=== PATIENT | male | born 1960 | race Caucasian/White ===

== ENCOUNTER 2020-04-20 12:52 | Outpatient (CLI) | payer OTHER, SELFPAY ==
--- NOTE | 2020-04-20 12:54 | ECG_ITS ---
Measurements Intervals [place] Rate: 110 P: 52 MA: 158 QRS: 77 QRSD: 98 T: 28 QT: 313 QTc: 425 Interpretive Statements SINUS TACHYCARDIA DELAYED PRECORDIAL R/S TRANSITION ABNORMAL ECG Electronically Signed On 04-20-2020 13:31:48 CDT by Chris Argueta D.O.
[2020-04-20 13:53] LABS: Alanine Aminotransferase 36 U/L (4-50); Albumin Level 4.7 g/dL (3.5-5.1); Alkaline Phosphatase 55 U/L (38-126); Amylase 97 U/L (30-110); Aspartate Amino Transferase 69 U/L (17-59); Bilirubin,Total 0.6 mg/dL (0.2-1.3); Lipase 991 U/L (23-300)
[2020-04-20 14:12] LABS: Blood Urea Nitrogen 16 mg/dL (9-20); Calcium 9.5 mg/dL (8.4-10.2); Carbon Dioxide 25 mmol/L (22-30); Chloride 96 mmol/L (98-107); Estimated Glomerular Filt Rate > 60; Glucose 256 mg/dL (75-110); Potassium 3.9 mmol/L (3.4-5.0); Sodium 135 mmol/L (137-145)
== END 2020-04-20 12:53 | disposition home or self-care (01) ==
PROVIDERS: Anesthesiology; PCP Internal Medicine; Visit Provider Surgery
DX: E11.9 Type 2 diabetes mellitus without complications (principal); K80.20 Calculus of gallbladder without cholecystitis without obstruction; R94.31 Abnormal electrocardiogram [ECG] [EKG]
CPT/HCPCS: 36415; 80048; 80076; 82150; 83690; 93005

== ENCOUNTER 2020-04-27 00:30 | Outpatient (CLI) | payer OTHER, SELFPAY ==
[2020-04-27 20:03] LABS: SARS-CoV-2 RNA PCR Negative
== END 2020-04-27 00:31 | disposition home or self-care (01) ==
LOC: ANHCOVIDDT 00:30
PROVIDERS: PCP Internal Medicine; Visit Provider Surgery
DX: Z01.812 Encounter for preprocedural laboratory examination (principal); Z11.59 Encounter for screening for other viral diseases
CPT/HCPCS: 87635; C9803; U0003

== ENCOUNTER 2020-04-27 08:36 | Outpatient (CLI) | payer OTHER, SELFPAY ==
[2020-04-27 08:56] LABS: Basophils Absolute Auto 0.1 K/mm3 (0.0-0.1); Basophils Percent Auto 0.9 % (0.2-1.2); Eosinophils Absolute Auto 0.3 K/mm3 (0-0.3); Eosinophils Percent Auto 2.8 % (0-4.4); Hematocrit 49.5 % (42.0-52.0); Hemoglobin 15.9 g/dL (14.0-18.0); Immature Granulocyte Absolute 0.08 K/mm3 (0.00-0.031); Immature Granulocyte Percent A 0.9 % (0-0.5); Lymphocytes Absolute Auto 2.74 K/mm3 (0.9-3.2); Lymphocytes Percent Auto 30.7 % (18.3-44.2); Mean Corpuscular HGB Conc 32.1 g/dl (32-36); Mean Corpuscular Hemoglobin 26.6 pg (26-34); Mean Corpuscular Volume 82.8 fl (80-100); Mean Platelet Volume 10.6 fl (7.4-10.4); Monocytes Absolute Auto 0.8 K/mm3 (0.1-0.6); Monocytes Percent Auto 8.6 % (2.6-8.5); Neutrophils Percent Auto 56.1 % (45.5-73.1); Platelet Count Result 313 k/mm3 (150-375); Red Blood Count 5.98 M/mm3 (4.6-6.20); Red Cell Distribution Width 14.4 % (11.5-14.5); White Blood Count 8.9 K/mm3 (4.5-10.0)
[2020-04-27 09:03] LABS: Alanine Aminotransferase 29 U/L (4-50); Albumin Level 4.8 g/dL (3.5-5.1); Alkaline Phosphatase 39 U/L (38-126); Amylase 87 U/L (30-110); Aspartate Amino Transferase 45 U/L (17-59); Bilirubin,Total 0.9 mg/dL (0.2-1.3); Blood Urea Nitrogen 21 mg/dL (9-20); Calcium 9.5 mg/dL (8.4-10.2); Carbon Dioxide 29 mmol/L (22-30); Chloride 99 mmol/L (98-107); Estimated Glomerular Filt Rate > 60; Glucose 119 mg/dL (75-110); Lipase 293 U/L (23-300); Potassium 4.3 mmol/L (3.4-5.0); Sodium 138 mmol/L (137-145)
== END 2020-04-27 08:37 | disposition home or self-care (01) ==
LOC: ANHSURGERY 08:37
PROVIDERS: PCP Internal Medicine; Visit Provider Surgery
DX: K80.20 Calculus of gallbladder without cholecystitis without obstruction (principal)
CPT/HCPCS: 36415; 80053; 82150; 83690; 85025

== ENCOUNTER 2020-04-29 02:08 | Day surgery (SDC) | payer OTHER, SELFPAY ==
[2020-04-17 10:42] VITALS: BMI 42.7
[2020-04-29] VITALS (8 sets, daily range): BP systolic 98–142; BP diastolic 53–99; PULSE 71–101; RESP 14–21; TEMP 36.2–36.3; O2SAT 92–100
--- NOTE | 2020-04-29 12:01 | WPDANESEPPF ---
Anes - Initial Pre Proc Eval Procedure: Operation Date: 04/29/20 13:30 Proposed Procedures p Laparoscopic Cholecystectomy, Possible Intraoperative Cholangiogram, Possible Open Cholecystectomy - Phani Moon MD Date/Time: 04/29/20 12:01 Surgeon: Phani Moon MD Pre Op Diagnosis: cholelithiasis Patient Data Age: 60 Gender: M Height: 5 ft 6 in Weight: 120.2 kg Allergies Allergy/AdvReac Type Severity Reaction Status Date / Time No Known Allergies Allergy Verified 04/17/20 10:43 Home Medications Medication Instructions Recorded Confirmed Type fenofibrate 160 mg tablet 160 mg PO DAILY 03/31/20 04/17/20 History glimepiride 2 mg tablet 2 mg PO QAM 03/31/20 04/17/20 History hydrochlorothiazide 50 mg tablet 50 mg PO DAILY 03/31/20 04/17/20 History metformin 500 mg tablet 500 mg PO DAILY 03/31/20 04/17/20 History olmesartan 20 mg tablet 20 mg PO DAILY 03/31/20 04/17/20 History rosuvastatin 10 mg tablet 10 mg PO DAILY 03/31/20 04/17/20 History sitagliptin 100 mg tablet 100 mg PO DAILY 03/31/20 04/17/20 History Patient hx anesthesia problems: none Family hx anesthesia problems: none [facility] Past Medical History Medical History (Updated 04/29/20 @ 12:01 by Omero Lowery MD) Diabetes High cholesterol HTN (hypertension) Social History Social History Smoking status: Never smoker Alcohol intake: current Substance use: never 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 Gender identity (if verbalized by the patient): Male Anes - Eval Final PreProcedure Day of Procedure 04/29/20 12:01 Patient weight: morbidly obese Heart: regular rate and rhythm Lungs: clear to auscultation Airway: Mallampati scale (anterior) class III Neurological: alert and oriented Last oral intake: >/= 8 hours ASA classification: III Emergent: no Anesthetic plan: proceed Anesthesia type and monitoring: general ETT (have glidescope available; anterior airway) and standard monitoring Informed Consent: The patient's anesthetic plan and its attendant risks and benefits were discussed with the patient/family/POA. Questions were solicited and answers provided to the satisfaction of the patient/family/POA.
[2020-04-29] MEDS: LACTATED RINGERS 1,000 ML 30 ML IV CONT ×2 (12:05→15:59)
[2020-04-29 12:10] LABS: Glucose Point of Care 88 (65-105)
[2020-04-29] MEDS: KETOROLAC 15 MG/ML VIAL (*BKC) IV PUSH (12:25)
--- NOTE | 2020-04-29 14:04 | WPDHPUPDATE1 ---
History and Physical Update Update Date/Time: 04/29/20 14:04 History and Physical has been reviewed, including an updated exam of the patient. There are NO changes in the patient's condition. Risks, benefits, and alternatives have been discussed and questions answered. Patient agrees to proceed with procedure.
[2020-04-29] MEDS: ceFAZolin 2 GM/D5W 50 ML 2 GM/50 ML BAG IVPB (14:14)
--- NOTE | 2020-04-29 14:42 | SUR.OPER ---
Blood Sugar checked at 1442-86
[2020-04-29 14:45] LABS: Glucose Point of Care 86 (65-105)
[2020-04-29] MEDS: BUPIVACAINE/EPINEPHRINE 0.5% 30 ML VIAL INFILTRATE (14:47)
--- NOTE | 2020-04-29 15:48 | P.OP_ITS ---
Procedure Note - Detailed Date of procedure: 04/29/20 Pre-op diagnosis: cholelithiasis Chronic Cholecystitis with Cholelithiasis Post-op diagnosis: same Procedure performed: Laparoscopic Cholecystectomy Description of procedure: Patient was seen preoperatively in the holding area and risks, benefits and alternatives confirmed. Patient was taken to the operating room and general anesthesia was induced. A time out was then preformed with the surgery team confirming patient and site of surgery. The abdomen was prepped and draped in the usual sterile fashion. Incision was made just below the umbilicus with an 11 blade knife. I placed 2 stay sutures of O- Vicryl on either side of the mid- line fascia beneath the umbilicus and was then able to slide in the Sheth cannula through the fascial defect into the peritoneum. First under low flow and then under high flow the abdomen was insufflated with carbon dioxide never exceeding a pressure of 14. Three 5 mm trocars were then introduced under direct vision. The following trocars were introduced under direct vision: a 5 mm in the epigastrium and two 5 mm trocars along the right costal margin laterally in the subcostal area. There were no significant adhesions to the gallbladder. The gallbladder however was fairly tensely distended and we could not grab it easily. Therefore using the long trocar needle an S 20 cc syringe we aspirated by puncturing the upper portion of the gallbladder with the needle and aspirated 20 cc. We were then able to grasp right on the spot without difficulty to allow for good retraction as we did the rest of the dissection. I then carefully used the L-shaped cautery and the [place] dissector to dissect out the triangle of [place]. I then was able to dissect out both the cystic duct and cystic artery and identify a window of safety. The gall bladder was grasped and the cystic duct and artery were dissected free and clipped with an 5 mm endo-clip ski binding fitter and repairer. The cystic duct and artery were clipped with use of 2 clips on the patient's side 1 on the gallbladder side utilizing a 5 mm endoclip-ski binding fitter and repairer. The cystic duct was then transected. The cystic artery was also transected at this point. The gall bladder was removed using electrocautery and then removed from the abdomen using an endobag. In order to get the large stone out of the abdomen within the gallbladder I did make the fascial defect slightly larger with Daily scissors. The trocars were removed visualizing hemostasis and the remaining gas evacuated. The large trocar site at the umbilicus was closed with a [id number] #1 Vicryl and also two simple O-Vicryl sutures. Further local anesthetic was placed into each incision for postop pain control. The skin incisions were closed with subcuticular suture of 4-0 Monocryl. Surgical glue then was applied to all the incisions. Patient tolerated the procedure well was taken to the recovery room in good condition. Anesthesia: GETA Surgeon: Phani Moon MD Cable Installation Technician: Fely VALLADARES, OR carpenter assistant Estimated blood loss (mL): 15 Drains: No Packing: No Pathology: yes (Gallbladder) Complications: No immediate complications Condition: stable Disposition: PACU Findings: Gallbladder did not appear to be acutely inflamed. There was a palpable 3 x 2 cm stone within the gallbladder upon removal.
[2020-04-29 16:32] LABS: Glucose Point of Care 113 (65-105)
--- NOTE | 2020-04-29 16:37 | SUR.PHASEI ---
[id number]. OSORIO AT [facility] TO SPEAK WITH PT.
== END 2020-04-29 17:28 | disposition home or self-care (01) ==
PROVIDERS: PCP Internal Medicine; Visit Provider Surgery
PROC: 0FT44ZZ Resection of Gallbladder, Percutaneous Endoscopic Approach (ICD-10-PCS; CPT 47562; principal; 2020-04-29 13:30)
DX: K80.10 Calculus of gallbladder with chronic cholecystitis without obstruction (principal); I10 Essential (primary) hypertension; E78.00 Pure hypercholesterolemia, unspecified; E11.9 Type 2 diabetes mellitus without complications; Z79.84 Long term (current) use of oral hypoglycemic drugs; E66.01 Morbid (severe) obesity due to excess calories; Z68.41 Body mass index [BMI] 40.0-44.9, adult
CPT/HCPCS: 47562; 88304; A9270; J0330; J0690; J1100; J1170; J1885; J2250; J2405; J2704; J2710; J3010; J7120

== ENCOUNTER 2021-07-25 11:48 | Observation (INO) | payer OTHER, SELFPAY ==
[2021-07-25] VITALS (7 sets, daily range): BP systolic 140–161; BP diastolic 79–91; PULSE 84–113; RESP 12–21; TEMP 36.4–36.9; O2SAT 96–100; BMI 42.0
--- NOTE | ~2021-07-25 | CT_ITS ---
EXAMINATION: CTA chest PE abdomen pel DATE: 07/25/2021 17:33 INDICATION: Lower chest and upper abdominal pain, shortness of breath TECHNIQUE: Computed tomography angiography (CTA) of the chest was performed with 100 mL Omnipaque-350 intravenous contrast timed to evaluate the pulmonary arteries. Subsequent postcontrast images of the abdomen and pelvis are obtained. Coronal maximum intensity projection 3D-reconstructions were create d by the technologist. The dose-length product (DLP) was 2255.10 mGy-cm. Automated exposure control a nd iterative reconstruction technique were employed. COMPARISON: None. FINDINGS: CTA CHEST: The pulmonary arteries are well-opacified. No pulmonary embolus is identified. Sensitivity in the lower lobes is limited by motion artifact. There is mild atelectasis of the lower lobes. No p leural effusion or pneumothorax is identified. No pathologically enlarged thoracic lymph nodes are id entified. The heart size is normal. ABDOMEN/PELVIS CT: There is a small sliding hiatal hernia. The liver is diffusely low in attenuation when compared with the spleen, consistent with hepatic steatosis. The gallbladder is surgically absen t. The spleen, pancreas, and adrenal glands are normal. Cysts of the kidneys measure up to 1.7 cm on the left. There is a 3 mm nonobstructing stone of the left kidney lower pole. There is calcified athe rosclerosis of the aorta and many of the other arteries. No pathologically enlarged abdominal or pelv ic lymph nodes are identified. There is no free intraperitoneal gas or evidence of bowel obstruction. The appendix is normal. There is mild lumbar spondylosis. IMPRESSION: 1. No pulmonary embolus. 2. No acute abnormality of the abdomen and pelvis. Reviewed, dictated and finalized at location A.
--- NOTE | ~2021-07-25 | NM_ITS ---
EXAMINATION: NM vaibhav stress w perfusion DATE: 07/26/2021 11:16 INDICATION: Chest discomfort TECHNIQUE: Rest images were obtained following intravenous administration of 10.3 mCi Tc99m tetrofosm in (Myoview). The patient was infused intravenously with Lexiscan (Regadenoson). Then, 31.77 mCi Tc99 m tetrofosmin (Myoview) was administered intravenously, and stress images were obtained. Data was rec onstructed into short axis and horizontal and vertical long axis SPECT images. Gated SPECT images wer e also obtained. COMPARISON: None. FINDINGS: There is no definite reversible or fixed perfusion abnormality to suggest ischemia or infar ction. There is normal left ventricular chamber size, wall motion and ejection fraction. Left ventr icular ejection fraction measures 67%. IMPRESSION: 1. Normal myocardial perfusion at rest and during stress. 2. Left ventricular ejection fraction measuring 67%. Reviewed, dictated and finalized at location B.
--- NOTE | ~2021-07-25 | XR_ITS ---
XR chest 2V 07/25/2021 12:09 Indication: Chest pain Procedure: PA and lateral views of the chest Comparison: No prior studies for comparison. Findings: Bibasilar atelectasis. No focal air space disease, pulmonary edema, pleural effusion or lois pected pneumothorax. Impression: 1: Bibasilar atelectasis. Reviewed, dictated and finalized at location A. Impression: 1: Bibasilar atelectasis.
--- NOTE | 2021-07-25 11:54 | ECG_ITS ---
Measurements Intervals [place] Rate: 110 P: 41 [place]: 154 QRS: 60 QRSD: 98 T: 14 QT: 326 QTc: 441 Interpretive Statements SINUS TACHYCARDIA POSSIBLE LEFT ATRIAL ENLARGEMENT INCOMPLETE RIGHT BUNDLE BRANCH BLOCK BORDERLINE ST-T WAVE ABNORMALITY- INFERIOR LEADS BASELINE ARTIFACT- I, III, AVR, AVL, V2-V3, V5 ABNORMAL ECG Electronically Signed On 07-25-2021 16:34:57 CDT by Chris Argueta D.O.
[2021-07-25 12:15] LABS: Basophils Absolute Auto 0.1 K/mm3 (0.0-0.1); Basophils Percent Auto 0.7 % (0.2-1.2); Eosinophils Absolute Auto 0.2 K/mm3 (0-0.3); Eosinophils Percent Auto 1.3 % (0-4.4); Hematocrit 48.9 % (42.0-52.0); Immature Granulocyte Absolute 0.06 K/mm3 (0.00-0.031); Immature Granulocyte Percent A 0.5 % (0-0.5); Lymphocytes Absolute Auto 3.41 K/mm3 (0.9-3.2); Lymphocytes Percent Auto 30.4 % (18.3-44.2); Mean Corpuscular HGB Conc 32.7 g/dl (32-36); Mean Corpuscular Volume 82.6 fl (80-100); Mean Platelet Volume 9.9 fl (7.4-10.4); Monocytes Absolute Auto 0.8 K/mm3 (0.1-0.6); Monocytes Percent Auto 6.7 % (2.6-8.5); Neutrophils Absolute Auto 6.8 K/mm3 (1.3-6.7); Neutrophils Percent Auto 60.4 % (45.5-73.1); Platelet Count Result 330 k/mm3 (150-375); Red Blood Count 5.92 M/mm3 (4.6-6.20); Red Cell Distribution Width 14.3 % (11.5-14.5); White Blood Count 11.2 K/mm3 (4.5-10.0)
[2021-07-25 12:25] LABS: INR 0.9; Prothrombin Time 12.3 Seconds (11.1-14.7)
[2021-07-25 12:26] LABS: Anion Gap 17 mmol/L (8-16); Blood Urea Nitrogen 21 mg/dL (9-20); Calcium 9.6 mg/dL (8.4-10.2); Carbon Dioxide 22 mmol/L (22-30); Chloride 100 mmol/L (98-107); Estimated Glomerular Filt Rate > 60; Glucose 120 mg/dL (65-110); Partial Thromboplastin Time 23.6 SECONDS (22.3-36.8); Potassium 3.9 mmol/L (3.4-5.0); Sodium 139 mmol/L (137-145)
[2021-07-25 12:36] LABS: Troponin I < 0.012 ng/mL (0.000-0.034)
[2021-07-25 15:28] LABS: Troponin I < 0.012 ng/mL (0.000-0.034)
[2021-07-25] MEDS: ASPIRIN 81 MG CHEWABLE TABLET 324 MG PO (16:41)
--- NOTE | 2021-07-25 16:45 | ED.GENADULT ---
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 He states he had sudden onset of hot flashes and chills accompanied by nausea, epigastric discomfort, and lightheadedness. She denies chest pain per se and also denies cough and shortness of breath. No history of similar symptoms. Past medical history includes hypertension, hyperlipidemia, diabetes. His home blood sugars run between 90 and 105. He checked his blood sugar with a reading of 101. He let his son know that he was not feeling well, and also contacted his . They brought him here for further evaluation. Denies significant stress levels. He does not consume alcohol or use illicit drugs. Denies smoking. No history of [place]. Paternal history of CAD. He states he feels somewhat improved from the time of symptom onset. He has never had stress test or ECHO per his reports. Related Data Home Medications Medication Instructions Recorded Confirmed fenofibrate 160 mg tablet 160 mg PO DAILY 03/31/20 05/13/20 glimepiride 2 mg tablet 2 mg PO QAM 03/31/20 05/13/20 hydrochlorothiazide 50 mg tablet 50 mg PO DAILY 03/31/20 05/13/20 metformin 500 mg tablet 500 mg PO DAILY 03/31/20 05/13/20 olmesartan 20 mg tablet 20 mg PO DAILY 03/31/20 05/13/20 rosuvastatin 10 mg tablet 10 mg PO DAILY 03/31/20 05/13/20 sitagliptin 100 mg tablet 100 mg PO DAILY 03/31/20 05/13/20 insulin degludec 100 unit/mL (3 20 unit SUB-Q DAILY 05/13/20 05/13/20 mL) subcutaneous pen Allergies Allergy/AdvReac Type Severity Reaction Status Date / Time No Known Allergies Allergy Verified 07/25/21 16:43 Review of Systems Review of Systems: CONSTITUTIONAL: Reports hot flashes and chills EYES: Denies visual changes, redness, or discharge. ENT: Denies rhinorrhea, congestion, sore throat, or otalgia. CARDIOVASCULAR: Denies chest pain, palpitations, or edema. RESPIRATORY: Denies cough or dyspnea. GASTROINTESTINAL: Reports abdominal pain and nausea without vomiting. Denies diarrhea. GENITOURINARY: Reports urinary frequency. Denies dysuria or hematuria. SKIN: Denies rash or itching. MUSCULOSKELETAL: Reports generalized myalgias. Denies back pain NEUROLOGIC: Reports mild headache and lightheadedness. Denies numbness, dizziness PSYCHIATRIC: Denies anxiety or depression. [facility] Past Medical History Medical History (Updated 07/25/21 @ 19:42 by MOHIT VanegasP, ) Diabetes High cholesterol HTN (hypertension) Surgical History Surgical History Hx laparoscopic cholecystectomy Family History Family History Father No problems noted. 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 HEAD: Normocephalic, atraumatic. EYES: PERRLA and EOMI. ENT: Nares clear, no rhinorrhea or epistaxis. Mucous membranes moist. Oropharynx without tonsillar hypertrophy exudate or other lesions. Bilateral TMs pearly monroe nonbulging NECK: Supple. No adenopathy or masses. No carotid bruits or JVD CHEST: Clear to auscultation. No respiratory distress. No wheezes rales or rhonchi HEART: Rate 110 Normal rhythm. No murmur heard. Normal peripheral pulses. ABDOMEN: Soft, epigastric tenderness without rebound or guarding. Abdomen is nondistended, norm
[2021-07-25] MEDS: SODIUM CHLORIDE 0.9% IV 1,000 ML 999 ML IV CONT (17:05)
[2021-07-25] MEDS: FAMOTIDINE 20 MG/2 ML VIAL IV PUSH ×2 (17:05→21:59)
[2021-07-25] MEDS: ONDANSETRON INJ 4 MG/2 ML VIAL IV PUSH (17:05)
[2021-07-25 17:14] LABS: Alanine Aminotransferase 32 U/L (4-50); Albumin Level 5.3 g/dL (3.5-5.1); Alkaline Phosphatase 38 U/L (38-126); Aspartate Amino Transferase 36 U/L (17-59); Bilirubin,Total 0.9 mg/dL (0.2-1.3); Creatine Kinase 76 U/L (55-170); Lactic Acid Reflex 1.7 mmol/L (0.7-2.1); Lipase 96 U/L (23-300)
[2021-07-25 17:15] LABS: Add Urine Microscopic? YES; Appearance Urine Clear (Clear); Bilirubin Urine Negative (Negative); Blood Urine Negative (Negative); Color Urine Yellow (Yellow); Glucose Urine UA Negative (Negative); Ketones Urine Negative (Negative); Leukocyte Esterase Ur Negative LEU/UL (Negative); Mucus Urine Rare /lpf; Nitrate Urine Negative (Negative); Protein Urine 1+ mg/dL (Negative); Specific Grav Ur 1.016 (1.001-1.035); Urobilinogen Urine Negative mg/dL (<2.0); WBC Urine 0-3 /hpf
[2021-07-25 18:12] LABS: Free T4 Free Thyroxine 1.18 ng/mL (0.78-2.19)
[2021-07-25] MEDS: BELLADONNA ALK/PHENOB ELIX 10 ML, MAG HYDROX/ALUMINUM HYD/SIMETH 30 ML, LIDOCAINE HCL 2... PO (18:53)
--- NOTE | 2021-07-25 19:18 | PC.NURSE ---
pt reports pain has subsided s/p gi cocktail
--- NOTE | 2021-07-25 21:19 | ADMGEN ---
This patient, Brodie Birmingham, was admitted to Medical Room 251-01. Patient/family oriented to hospital policies and general routines including ID bracelet, bed and alarms, visiting hours, pain management, procedures, bathroom and other care routines, personal items, smoking policy, room service/diet, and visiting hours. Information on how to activate the Rapid Response Team has been discussed. Patient/Family are encouraged to report perceived risks to care and to ask questions if they do not understand what they are told or what they should do.
[2021-07-25] MEDS: SODIUM CHLORIDE 0.9% IV 1,000 ML 125 ML IV CONT (21:54)
[2021-07-25 22:33] LABS: Troponin I < 0.012 ng/mL (0.000-0.034)
[2021-07-25 22:47] LABS: Glucose Point of Care 101 mg/dl (65-105)
[2021-07-26] VITALS (8 sets, daily range): BP systolic 117–153; BP diastolic 67–88; PULSE 59–95; RESP 16; TEMP 36.1–36.6; O2SAT 97–98
--- NOTE | 2021-07-26 00:52 | PM.IMHP ---
H&P: HPI History of Present Illness Date/Time: 07/26/21 00:52 Chief Complaint: Epigastric discomfort Narrative: This is a 61-year-old male with past medical history significant for hypertension, dyslipidemia, type 2 diabetes mellitus, obesity. 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 Patient has been in his usual state of health up until this episode he denies any chest pain with activity or at rest no shortness of breath, no PND ,no orthopnea ,no cough, no sputum production, no leg swelling, no nausea ,no vomiting ,no diarrhea, no fevers ,no rigors ,no chills, he has been working 14-16 hours a day he works 2 jobs, he denies any claudication ,any lightheadedness, dizziness, near-syncope or syncope. Preliminary workup has been pretty much unrevealing patient had a GI cocktail in the emergency room which alleviated his discomfort. Patient has been placed in observation for further management treatment and evaluation. Review of Systems Review of Systems: Epigastric discomfort retrosternal chest pain Constitutional: Constitutional: Denies chills, Denies fatigue, Denies fever(s), Denies malaise and Denies weakness Eyes: Eyes: Denies change in vision ENT: Denies dysphagia, Denies vertigo, Denies dizziness, Denies nasal congestion, Denies nasal discharge, Denies nasal obstruction and Denies odynophagia Cardiovascular: Cardiovascular: Denies irregular heart rhythm, Denies leg edema, Denies lightheadedness, Denies radiating jaw, neck or arm pain, Denies palpitations, Denies dyspnea, Denies dyspnea on exertion and Denies orthopnea Respiratory: Respiratory: Denies change in phlegm color, Denies cough, Denies excessive phlegm production, Denies dyspnea and Denies wheezing Gastrointestinal: Gastrointestinal: Reports abdominal pain (Epigastric), Reports heartburn, Denies nausea and Denies vomiting Genitourinary: Genitourinary: Reports no additional male genitourinary complaints Musculoskeletal: Musculoskeletal: Reports no additional musculoskeletal complaints Integumentary/Breasts: Skin/Breast: Reports system reviewed and no additional complaints, except as docu Neurologic: Reports system reviewed and no additional complaints, except as documented Psychiatric: Psychiatric: Reports no additional psychiatric complaints Endocrine: Endocrine: Reports no additional endocrine complaints Hematologic/Lymphatic: Hematologic/Lymphatic: Reports no additional hematologic/lymphatic complaints Allergic/Immunologic: Allergic/Immunologic: Reports no additional allergic/immunologic complaints PMFSH Past Medical History Medical History (Updated 07/26/21 @ 04:01 by John Cotto MD) Diabetes High cholesterol HTN (hypertension) Surgical History Surgical History Hx laparoscopic cholecystectomy Family History Family History (Updated 07/25/21 @ 22:08 by Helen Collins RN) Father Heart disease Dementia Mother Panchondritis Social History Social History Smoking status: Former smoker Alcohol intake: current Drinks per week: 0 Substance use: never Substance use type: does not use Other substance usage details: social drinker, minimally 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
--- NOTE | 2021-07-26 03:51 | EST_ITS ---
Patient Info Name: Brodie Birmingham Age: 61 years : 1960 Gender: Male Ht: 66 in Wt: 260 lbs BSA: 2.40 m2 HR: 88 bpm BP: 141 / 97 mmHg Exam Date: 07/26/2021 10:18 AM Exam Location: [facility] Stress Patient Status: Inpatient Admit Date: 07/25/2021 Staff Ordering Physician: John Cotto MD Attending Provider: Sarkis Rushing MD Exercise Technologist: Alana Og CT Exercise Physician: Yo Garces MD Exam Type: CA stress vaibhav w NM Study Info Indications R07.89 - Other chest pain A regadenoson stress test was performed. Summary 1. Please correlate with nuclear medicine images, reported separately. 2. No abnormal ST-T wave changes with lexiscan. Protocol: Lexiscan Stress ECG Details Stage: REST Duration (min): 3 min : 45 sec HR (bpm): 84 SBP (mmHg): 141 DBP (mmHg): 97 Stage: REST Duration (min): 8 min : 51 sec HR (bpm): 93 SBP (mmHg): 129 DBP (mmHg): 82 Stage: STAGE 1 Duration (min): 0 min : 59 sec HR (bpm): 105 SBP (mmHg): 148 DBP (mmHg): 70 Stage: RECOVERY Duration (min): 1 min : 0 sec HR (bpm): 109 SBP (mmHg): 148 DBP (mmHg): 70 Stage: RECOVERY Duration (min): 2 min : 0 sec HR (bpm): 104 SBP (mmHg): 148 DBP (mmHg): 70 Stage: RECOVERY Duration (min): 3 min : 0 sec HR (bpm): 103 SBP (mmHg): 140 DBP (mmHg): 71 Stage: RECOVERY Duration (min): 3 min : 10 sec HR (bpm): 101 SBP (mmHg): 140 DBP (mmHg): 71 Rest HR: 93 bpm Peak HR: 111 bpm Rest Sys BP: 129 mmHg Peak Sys BP: 148 mmHg Max Pred HR: 158 bpm % Max Pred HR: 70 % Target HR: 134 bpm Max RPP: 16,428 bpm*mmHg Target HR Summary: Hemodynamic response to exercise was normal BP Response: Normal blood pressure response Termination Reason: Completed protocol Cardiac Symptoms: None Total Time: 1 min : 0 sec Rest Contreras BP: 82 mmHg Peak Contreras BP: 70 mmHg Total Dose: 0.4 mg Resting ECG Normal sinus rhythm. Stress ECG No abnormal ST/T wave changes with exercise. Arrhythmias None. Report Signatures
[2021-07-26] MEDS: SODIUM CHLORIDE 0.9% IV 1,000 ML 125 ML IV CONT (06:00)
[2021-07-26 06:43] LABS: Basophils Absolute Auto 0.1 K/mm3 (0.0-0.1); Basophils Percent Auto 0.8 % (0.2-1.2); Eosinophils Absolute Auto 0.2 K/mm3 (0-0.3); Eosinophils Percent Auto 1.4 % (0-4.4); Hematocrit 44.9 % (42.0-52.0); Hemoglobin 14.3 g/dL (14.0-18.0); Immature Granulocyte Absolute 0.04 K/mm3 (0.00-0.031); Immature Granulocyte Percent A 0.4 % (0-0.5); Lymphocytes Absolute Auto 3.02 K/mm3 (0.9-3.2); Lymphocytes Percent Auto 28.6 % (18.3-44.2); Mean Corpuscular HGB Conc 31.8 g/dl (32-36); Mean Corpuscular Hemoglobin 27.1 pg (26-34); Mean Platelet Volume 10.2 fl (7.4-10.4); Monocytes Percent Auto 9.5 % (2.6-8.5); Neutrophils Absolute Auto 6.3 K/mm3 (1.3-6.7); Neutrophils Percent Auto 59.3 % (45.5-73.1); Platelet Count Result 261 k/mm3 (150-375); Red Blood Count 5.28 M/mm3 (4.6-6.20); Red Cell Distribution Width 14.8 % (11.5-14.5); White Blood Count 10.6 K/mm3 (4.5-10.0)
[2021-07-26 06:51] LABS: Anion Gap 10 mmol/L (8-16); Blood Urea Nitrogen 16 mg/dL (9-20); Calcium 8.3 mg/dL (8.4-10.2); Carbon Dioxide 26 mmol/L (22-30); Chloride 103 mmol/L (98-107); Estimated CRCL calculation 90 ml/min; Estimated Glomerular Filt Rate > 60; Glucose 109 mg/dL (65-110); Potassium 3.8 mmol/L (3.4-5.0); Sodium 139 mmol/L (137-145)
[2021-07-26] MEDS: FAMOTIDINE 20 MG/2 ML VIAL IV PUSH ×2 (07:39→20:45)
[2021-07-26] MEDS: OLMESARTAN MEDOXOMIL 20 MG TABLET PO (08:20)
[2021-07-26 12:27] LABS: Glucose Point of Care 141 mg/dl (65-105)
[2021-07-26] MEDS: FENOFIBRATE 160 MG TABLET PO (13:30)
[2021-07-26] MEDS: hydroCHLOROthiazide 25 MG TABLET PO (13:30)
[2021-07-26] MEDS: ROSUVASTATIN 10 MG TABLET PO (13:30)
[2021-07-26 17:10] LABS: Glucose Point of Care 137 mg/dl (65-105)
--- NOTE | 2021-07-26 17:49 | WPDGICN ---
Assessment and Plan Assessment and plan (1) Non-cardiac chest pain: Code(s): R07.89 - Other chest pain Status: Acute Assessment and Plan: stress test was normal, he is feeling better egd tomorrow to assess if any gi cause to explain his symptoms (2) Acute epigastric pain: Code(s): R10.13 - Epigastric pain Status: Acute (3) Type 2 diabetes mellitus: Code(s): E11.9 - Type 2 diabetes mellitus without complications Status: Acute Assessment and Plan: on meds (4) Dyslipidemia associated with type 2 diabetes mellitus: Code(s): E11.69 - Type 2 diabetes mellitus with other specified complication; E78.5 - Hyperlipidemia, unspecified Status: Acute (5) HTN (hypertension): Code(s): I10 - Essential (primary) hypertension Status: Acute Assessment and Plan: on meds (6) Nausea: Code(s): R11.0 - Nausea Status: Acute Assessment and Plan: on arrival, better now GI Consult Note Consult date/time: 07/26/21 17:49 Reason for consult: non-cardiac chest pain, nausea HPI: Brodie Birmingham is a 61 year old male with past medical history of hypertension, dyslipidemia, type 2 diabetes mellitus, obesity who came to the hospital with acute onset of severe pain in epigastric and retrosternal chest pain 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 He thought that could have heart attack and came to ER. Stress test was unrevealing and GI cocktail in the emergency room alleviated his discomfort. Also had CT chest/abd/pelvis (reviewed) and unremarkable. About 20 years ago had some sort of scope after having fish bone stuck in throat but otherwise no previous GI evaluation. Last colonoscopy about 15 years. He is feeling better now. Review of Systems Constitutional: Constitutional: Denies chills Eyes: Eyes: Denies blurry vision ENT: Reports Normal hearing present Cardiovascular: Cardiovascular: Reports chest pain Respiratory: Respiratory: Denies dyspnea Gastrointestinal: Gastrointestinal: Reports nausea Genitourinary: Genitourinary: Denies dysuria Musculoskeletal: Musculoskeletal: Denies arthralgias Integumentary/Breasts: Skin/Breast: Denies dry skin Neurologic: Denies headache(s) Psychiatric: Psychiatric: Reports no additional psychiatric complaints PMFSH Past Medical History Medical History (Updated 07/26/21 @ 17:53 by David Mo MD) Diabetes High cholesterol HTN (hypertension) Nausea Non-cardiac chest pain Surgical History Surgical History Hx laparoscopic cholecystectomy Family History Family History (Updated 07/25/21 @ 22:08 by Helen Collins, JACQUELYN) Father Heart disease Dementia Mother Panchondritis Social History Social History Smoking status: Former smoker Alcohol intake: current Drinks per week: 0 Substance use: never Substance use type: does not use Other substance usage details: social drinker, minimally 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 Gender identity (if verbalized by the patient): Male Spiritual care concerns: No Meds Home Medications and Allergies Home Medications Medication Instructions Recorded Confirmed Type fenofibrate 160 mg tablet 160 mg PO DAILY 03/31/20 07/25/21 History glimepiride 2 mg tablet 2 mg PO BID 03/31/20 07/25/21 History hydrochlorothiazide 50 mg tablet 25 mg PO DAILY 03/31/20 07/25/21 History metformin 500 mg tablet 1,000 mg PO BID 03/31/20 07/25/21 History olmesartan 20 mg tablet 20 mg PO DAILY 03/31/20 07/25/21 History rosuvastatin 10 mg tablet 10 mg PO DAILY 03/31/20 07/25/21 History insulin degludec 100 unit/mL (3 20 unit SUB-Q DAILY 05/13/20 07/25/21 History mL) subcutaneous pen Allergies Allergy/AdvReac Type Severity Reaction Status Date / Time No Kno
[2021-07-26 21:22] LABS: Glucose Point of Care 110 mg/dl (65-105)
[2021-07-27] VITALS (10 sets, daily range): BP systolic 104–143; BP diastolic 61–85; PULSE 66–90; RESP 14–25; TEMP 35.9–36.5; O2SAT 93–100
[2021-07-27 06:54] LABS: Glucose Point of Care 121 mg/dl (65-105)
--- NOTE | 2021-07-27 08:21 | PC.NURSE ---
Spoke with anesthesiolgoist in regards to patients morning medications. Per anesthesia, hold oral morning medications.
[2021-07-27] MEDS: FAMOTIDINE 20 MG/2 ML VIAL IV PUSH (08:23)
--- NOTE | 2021-07-27 12:35 | PC.NURSE ---
On 07/27/21, the student, Yaneth Patel, provided care and completed [facility] documentation on this patient. I have reviewed the student's documentation and agree with the findings.
--- NOTE | 2021-07-27 13:37 | PC.NURSE ---
Pt to GI lab.
--- NOTE | 2021-07-27 13:48 | WPDANESEPPF ---
Anes - Initial Pre Proc Eval Procedure: Operation Date: 07/27/21 15:00 Proposed Procedures p Esophagogastroduodenoscopy - David Mo MD Date/Time: 07/27/21 13:48 Surgeon: Sarkis Rushing MD Pre Op Diagnosis: Chest Pain Patient Data Age: 61 Gender: M Height: 1.68 m Weight: 118.18 kg Last Vital Signs Temp 97.3 F L 07/27/21 11:52 Pulse 83 07/27/21 12:00 Resp 16 07/27/21 11:52 BP 142/85 H 07/27/21 11:52 Pulse Ox 100 07/27/21 11:52 Allergies Allergy/AdvReac Type Severity Reaction Status Date / Time No Known Allergies Allergy Verified 07/25/21 16:43 Home Medications Medication Instructions Recorded Confirmed Type fenofibrate 160 mg tablet 160 mg PO DAILY 03/31/20 07/25/21 History glimepiride 2 mg tablet 2 mg PO BID 03/31/20 07/25/21 History hydrochlorothiazide 50 mg tablet 25 mg PO DAILY 03/31/20 07/25/21 History metformin 500 mg tablet 1,000 mg PO BID 03/31/20 07/25/21 History olmesartan 20 mg tablet 20 mg PO DAILY 03/31/20 07/25/21 History rosuvastatin 10 mg tablet 10 mg PO DAILY 03/31/20 07/25/21 History insulin degludec 100 unit/mL (3 20 unit SUB-Q DAILY 05/13/20 07/25/21 History mL) subcutaneous pen Laboratory Tests 07/26/21 07/26/21 07/27/21 15:56 20:44 06:39 POC Capillary Glucose 137 mg/dl H mg/dl 110 mg/dl H mg/dl 121 mg/dl H mg/dl (65-105) (65-105) (65-105) Patient hx anesthesia problems: none Family hx anesthesia problems: none Results Review: All pre-operative results and documents have been reviewed as part of the pre-operative evaluation. [facility] Past Medical History Medical History (Updated 07/26/21 @ 17:53 by David Mo MD) Diabetes High cholesterol HTN (hypertension) Nausea Non-cardiac chest pain Surgical History Surgical History Hx laparoscopic cholecystectomy Family History Family History (Updated 07/25/21 @ 22:08 by Helen Collins RN) Father Heart disease Dementia Mother Panchondritis Social History Social History Smoking status: Former smoker Alcohol intake: current Drinks per week: 0 Substance use: never Substance use type: does not use Other substance usage details: social drinker, minimally 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 Informed Consent: The patient's anesthetic plan and its attendant risks and benefits were discussed with the patient/family/POA. Questions were solicited and answers provided to the satisfaction of the patient/family/POA.
[2021-07-27 14:02] LABS: Glucose Point of Care 109 mg/dl (65-105)
[2021-07-27] MEDS: LACTATED RINGERS 1,000 ML 150 ML IV CONT (14:07)
[2021-07-27 15:07] LABS: Glucose Point of Care 109 mg/dl (65-105)
--- NOTE | 2021-07-27 15:14 | PC.NURSE ---
Pt returned from GI lab.
--- NOTE | 2021-07-27 15:14 | PM.DS ---
DS: Admitting Diagnosis Discharge Date 07/27/2021 Admitting Diagnosis Epigastric discomfort DS: Discharge Diagnosis Discharge Diagnosis (1) Acute epigastric pain: Code(s): R10.13 - Epigastric pain Status: Acute Assessment and Plan: Improved with GI cocktail GI consulted pt had Lexiscan stress test pt had EGD see below. (2) HTN (hypertension): Code(s): I10 - Essential (primary) hypertension Status: Acute Assessment and Plan: Continue to monitor Normal high Resume home meds (3) Dyslipidemia associated with type 2 diabetes mellitus: Code(s): E11.69 - Type 2 diabetes mellitus with other specified complication; E78.5 - Hyperlipidemia, unspecified Status: Acute Assessment and Plan: Continue statin Follow-up in outpatient setting On fenofibrate (4) Type 2 diabetes mellitus: Code(s): E11.9 - Type 2 diabetes mellitus without complications Status: Acute Assessment and Plan: Continue insulin Holding glimepiride and metformin Accu-Cheks AC and HS Insulin sliding scale as needed DS: Summary Hospital Course Hospital Course: 61-year-old male with past medical history significant for hypertension, dyslipidemia, type 2 diabetes mellitus, obesity. Patient presented to the emergency room due to epigastric discomfort and retrosternal chest pain dear started roughly in the morning patient has a form and has been working in his fine lifting heavy objects when he 1st felt sharp pain across his chest that later on became 90 and as time progressed he was worsened he initially attributed to dehydration and had a drink drove himself to the emergency room. Pt had negative lexiscan, pt had gi consult. 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 Was discharged on protonix orally. Time Spent with Patient Time attestation: Total time spent providing and/or coordinating discharge services: 40 minutes on day of dischrage Exam Narrative: Patient is laying in bed Resp: Effort & Inspection: normal respiratory effort, able to speak in complete sentences and no cough Auscultation: clear to auscultation bilaterally, no crackles, no rales, no rhonchi and no wheezes Cardio: Jugular venous distension: no JVD Rate: regular rate Rhythm: regular rhythm Heart sounds: S1 normal heart sound present and S2 normal heart sound present GI: Inspection: Pannus present and obesity Skin: Rashes: no rashes Wounds: no wounds Neuro: General: patient oriented x3 and CN's II-XI intact bilaterally Cranial nerves: Yes CN's II-XII intact bilaterally and Yes Equal, round and reactive pupils present Cognition (Neuro): normal cognition Speech: normal speech Gait exam (Neuro): Normal gait present Motor exam (neuro): 5/5 motor strength present throughout Extrem: General: normal to inspection, full ROM, no joint enlargement and no pedal edema DS: Data Data Completed and Pending Pending studies at discharge: Pending at discharge 07/27/21 14:39 Surgical [PTH] Routine Labs on day of discharge: Labs from last 24 hours 07/27/21 07/27/21 07/27/21 15:03 13:59 06:39 POC Capillary Glucose 109 H 109 H 121 H 07/26/21 07/26/21 20:44 15:56 POC Capillary Glucose 110 H 137 H Discharge Plan Discharge Attending physician on discharge: Danielle Gaviria Consulting providers: David Mo ; John Cotto V. ; Dante Ayala ; Willard Sweet ; Yo Garces ; Cullen Thao ; Chris Argueta Discharging Clinician: Danielle Gaviria Anticipated Discharge Date/Time: 07/27/21 15:13 Patient Disposition: Home, Self-Care Activity: as tolerated Diet: as tolerated Patient Instructions: Antibiotic Form Stand Alone Forms: General Discharge Information, Work/School Release IP Follow-up/Referrals: David Mo MD [Physician] - (in 1-2 months for colonoscopy and 1 year for rpt EGD ) Discharge
== END 2021-07-27 16:20 | disposition home or self-care (01) ==
LOC: ANHED 19:42 → ANH2MED 07-27 08:50
PROVIDERS: Emergency Medicine; Internal Medicine; Internal Medicine Gastroenterology; Admitting Provider Family Medicine; Emergency Provider Nurse Practitioner; PCP Internal Medicine; Visit Provider Family Medicine
PROC: 0DJ08ZZ Inspection of Upper Intestinal Tract, Via Natural or Artificial Opening Endoscopic (ICD-10-PCS; CPT 43235; principal; 2021-07-27 15:00)
DX: R07.89 Other chest pain (principal); R10.13 Epigastric pain; E78.5 Hyperlipidemia, unspecified; E11.9 Type 2 diabetes mellitus without complications; E66.9 Obesity, unspecified; I10 Essential (primary) hypertension; Z68.41 Body mass index [BMI] 40.0-44.9, adult; Z79.84 Long term (current) use of oral hypoglycemic drugs; Z79.4 Long term (current) use of insulin
CPT/HCPCS: 36415; 71046; 71275; 74177; 78452; 80048; 80076; 81001; 82550; 82948; 83605; 83690; 84439; 84443; 84484; 85025; 85610; 85730; 88305; 88313; 93005; 93017; 96361; 96374; 96375; 96376; 99285; A9270; A9502; G0378; J2405; J2704; J7030; J7120; Q9967

== ENCOUNTER 2022-02-25 01:29 | Day surgery (SDC) | payer OTHER, SELFPAY ==
[2022-02-09 14:45] VITALS: BMI 42.0
[2022-02-25 09:13] VITALS: BP 118/98; PULSE 120; RESP 20; TEMP 36.2; O2SAT 96
[2022-02-25 09:17] LABS: Glucose Point of Care 205 mg/dl (65-105)
[2022-02-25] MEDS: LACTATED RINGERS 1,000 ML 150 ML IV CONT (09:31)
--- NOTE | 2022-02-25 09:41 | PM.HPGS ---
History of Present Illness History of Present Illness Consent: Risks, benefits, and alternatives have been discussed and questions answered. Patient agrees to proceed with procedure. Chief complaint: neoplasm screening Narrative: Brodie Birmingham is a 61 year old male here for screening colonoscopy, last one 15 years ago Review of Systems Constitutional: Constitutional: Denies headache(s) and Denies weakness Eyes: Eyes: Denies blurry vision ENT: Reports Normal hearing present, Denies headache(s) and Denies neck pain Cardiovascular: Cardiovascular: Denies chest pain and Denies dyspnea Respiratory: Respiratory: Denies dyspnea Gastrointestinal: Gastrointestinal: Reports no additional gastrointestinal complaints Genitourinary: Genitourinary: Denies dysuria Musculoskeletal: Musculoskeletal: Denies neck pain Integumentary/Breasts: Skin/Breast: Denies dry skin Neurologic: Reports Normal hearing present, Denies headache(s) and Denies weakness Psychiatric: Psychiatric: Denies anxiety Endocrine: Endocrine: Denies change in body appearance Hematologic/Lymphatic: Hematologic/Lymphatic: Denies easy bleeding Allergic/Immunologic: Allergic/Immunologic: Denies urticaria PMFSH Past Medical History Medical History Diabetes High cholesterol HTN (hypertension) Nausea Non-cardiac chest pain Surgical History Surgical History Hx laparoscopic cholecystectomy Family History Family History Father Dementia Diabetes mellitus Hypertension Mother Panchondritis Social History Social History Years smoked: 10 Smoking status: Former smoker Tobacco type: cigarettes Alcohol intake: current Drinks per week: 1 Alcohol use details: rare alcohol use Substance use: never Substance use type: does not use Other substance usage details: social drinker, minimally Last use: 1984 Living arrangements: with family 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 Gender identity (if verbalized by the patient): Male Spiritual care concerns: No Meds Home Medications and Allergies Home Medications Medication Instructions Recorded Confirmed Type fenofibrate 160 mg tablet 160 mg PO DAILY 03/31/20 02/09/22 History glimepiride 2 mg tablet 2 mg PO BID 03/31/20 02/09/22 History hydrochlorothiazide 50 mg tablet 25 mg PO DAILY 03/31/20 02/09/22 History metformin 500 mg tablet 1,000 mg PO BID 03/31/20 02/09/22 History olmesartan 20 mg tablet 20 mg PO DAILY 03/31/20 02/09/22 History rosuvastatin 10 mg tablet 10 mg PO DAILY 03/31/20 02/09/22 History insulin degludec 100 unit/mL (3 20 unit SUB-Q DAILY 05/13/20 02/09/22 History mL) subcutaneous pen pantoprazole 40 mg PO QAM #60 tablet 07/27/21 12/13/21 Rx Allergies Allergy/AdvReac Type Severity Reaction Status Date / Time No Known Allergies Allergy Verified 02/25/22 09:12 Vital Signs Vital Signs - 24 hr 02/25/22 09:13 Temperature 97.2 F L Pulse Rate 120 H Respiratory Rate 20 Blood Pressure 118/98 H Pulse Oximetry 96 Exam Const: General: comfortable and no acute distress HENMT: General nose exam: Normal nares present Eyes: General: appearance normal, both eyes and all related structures Neck: Neck: no JVD Resp: Auscultation: clear to auscultation bilaterally Cardio: Rate: regular rate Rhythm: regular rhythm GI: Inspection: non-distended GI Palp: Yes Soft to palpation Skin: General skin exam: normal color Neuro: General: gait normal Speech: normal speech Extrem: General: normal to inspection Psych: Mental Status: mental status grossly normal Assessment and Plan Assessment and plan (1) Encounter for screening for malignant neoplasm of colon: Code(s): Z12.11 -
--- NOTE | 2022-02-25 09:45 | P.PNAN_ITS ---
Anes - Eval Pre Procedure Procedure: Operation Date: 02/25/22 10:30 Proposed Procedures p Screening Colonoscopy - David Mo MD Date/Time: 02/25/22 09:45 Pre Op Diagnosis: neoplasm screening Patient Data Age: 61 Gender: M Height: 1.68 m Weight: 118.7 kg Last Vital Signs Temp 36.2 C L 02/25/22 09:13 Pulse 120 H 02/25/22 09:13 Resp 20 02/25/22 09:13 BP 118/98 H 02/25/22 09:13 Pulse Ox 96 02/25/22 09:13 Allergies Allergy/AdvReac Type Severity Reaction Status Date / Time No Known Allergies Allergy Verified 02/25/22 09:12 Home Medications Medication Instructions Recorded Confirmed Type fenofibrate 160 mg tablet 160 mg PO DAILY 03/31/20 02/09/22 History glimepiride 2 mg tablet 2 mg PO BID 03/31/20 02/09/22 History hydrochlorothiazide 50 mg tablet 25 mg PO DAILY 03/31/20 02/09/22 History metformin 500 mg tablet 1,000 mg PO BID 03/31/20 02/09/22 History olmesartan 20 mg tablet 20 mg PO DAILY 03/31/20 02/09/22 History rosuvastatin 10 mg tablet 10 mg PO DAILY 03/31/20 02/09/22 History insulin degludec 100 unit/mL (3 20 unit SUB-Q DAILY 05/13/20 02/09/22 History mL) subcutaneous pen pantoprazole 40 mg PO QAM #60 tablet 07/27/21 12/13/21 Rx Laboratory Tests 02/25/22 09:15 POC Capillary Glucose 205 mg/dl H mg/dl (65-105) Patient hx anesthesia problems: none Family hx anesthesia problems: none Results Review: All pre-operative results and documents have been reviewed as part of the pre-operative evaluation. [facility] Past Medical History Medical History Diabetes High cholesterol HTN (hypertension) Nausea Non-cardiac chest pain Surgical History Surgical History Hx laparoscopic cholecystectomy Family History Family History Father Dementia Diabetes mellitus Hypertension Mother Panchondritis Social History Social History Years smoked: 10 Smoking status: Former smoker Tobacco type: cigarettes Alcohol intake: current Drinks per week: 1 Alcohol use details: rare alcohol use Substance use: never Substance use type: does not use Other substance usage details: social drinker, minimally Last use: 1984 Living arrangements: with family 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
[2022-02-25 10:05] VITALS: BP 111/63; PULSE 100; RESP 27; O2SAT 96
[2022-02-25 10:15] VITALS: BP 107/65; PULSE 103; RESP 28; O2SAT 97
[2022-02-25 10:22] LABS: Glucose Point of Care 186 mg/dl (65-105)
[2022-02-25 10:25] VITALS: BP 124/79; PULSE 101; RESP 25; O2SAT 96
== END 2022-02-25 10:29 | disposition home or self-care (01) ==
PROVIDERS: PCP Internal Medicine; Visit Provider Internal Medicine Gastroenterology
PROC: 0DJD8ZZ Inspection of Lower Intestinal Tract, Via Natural or Artificial Opening Endoscopic (ICD-10-PCS; CPT 45378; principal; 2022-02-25 10:30)
DX: Z12.11 Encounter for screening for malignant neoplasm of colon (principal); D12.4 Benign neoplasm of descending colon; K57.30 Diverticulosis of large intestine without perforation or abscess without bleeding; I10 Essential (primary) hypertension; E11.9 Type 2 diabetes mellitus without complications; E78.00 Pure hypercholesterolemia, unspecified; Z87.891 Personal history of nicotine dependence
CPT/HCPCS: 45385; 82948; 88305; J2704; J7120

== ENCOUNTER → 2022-10-18 11:02 | Outpatient (CLI) | payer OTHER, SELFPAY ==
--- NOTE | ~2022-10-18 | XR_ITS ---
EXAMINATION: XR abdomen/kub 1V INDICATION: Left ureteral stone TECHNIQUE: Supine views of the abdomen were obtained on 2 radiographs. COMPARISON: CT from today FINDINGS: The punctate left renal stone identified on today's CT is not definitely identified. The heraclio wel gas pattern is normal. Cholecystectomy clips are noted. There is mild osteoarthritis of the hips. IMPRESSION: 1. No definite urolithiasis identified radiographically. Reviewed, dictated and finalized at location [facility] [employer]
--- NOTE | ~2022-10-18 | CT_ITS ---
Non-contrast CT scan of the Abdomen and Pelvis Clinical indication: Left ureteral stone Technique: 5 mm axial scans were obtained through the abdomen and pelvis without intravenous or oral contrast. Dose reduction technique was used on this scan by utilizing automated exposure control and iterative reconstruction technique. The dose-length product (DLP) was 1023.81 mGy-cm. COMPARISON: 07/25/2021 Findings: Images through the lung bases reveal no abnormalities. Tiny nonobstructing left renal stone noted. No right renal stone present. No ureteral stone or hydron ephrosis on either side. The liver, spleen, pancreas, and adrenals appear normal. Cholecystectomy clips present. There is no a ortic aneurysm. There is no evidence of bowel obstruction. Normal appendix. Images through the pelvis were performed. There is no evidence of ascites or lymphadenopathy. Urinary bladder unremarkable. Prostate gland and seminal vesicles are unremarkable. Impression: Tiny nonobstructing left renal stone. Reviewed, dictated and finalized at [facility]. EXAMINER Impression: Tiny nonobstructing left renal stone.
== END ==
PROVIDERS: PCP Physician Assistant Medical; Visit Provider Nurse Practitioner
DX: N20.1 Calculus of ureter (principal)
CPT/HCPCS: 74018; 74176

== ENCOUNTER 2023-08-25 12:49 | Emergency (ER) | payer OTHER, SELFPAY ==
--- NOTE | 2023-08-25 14:01 | ED.URI ---
HPI - URI/Sore Throat General Chief Complaint: Upper Respiratory Infection Stated Complaint: Bodyache Source: patient Mode of arrival: ambulatory Limitations: no limitations History of Present Illness HPI Narrative: Patient presented for c/o bilateral calf cramping for one week, with bilateral leg weakness today after deer hunting and trimming trees. States the calf pain is constant, burning/sharp. Feels better when walking around. Denies swelling, redness or warmth to the legs. Denies chest pain, palpitations, sob, dizziness, nausea/vomiting, or lethargy. Denies increased fatigue with normal exertion or ADLs. Related Data Home Medications Medication Instructions Recorded Confirmed omega [id number] oil 1,000 mg 2 cap PO DAILY 03/28/23 08/25/23 (120 mg-180 mg) capsule (Fish Oil) Allergies Allergy/AdvReac Type Severity Reaction Status Date / Time No Known Allergies Allergy Verified 08/25/23 13:13 Review of Systems Review of Systems: CONSTITUTIONAL: Denies body aches, fever, chills, or sweats. EYES: Denies visual changes, redness, or discharge. ENT: Denies rhinorrhea, congestion, sore throat, or otalgia. CARDIOVASCULAR: Denies chest pain, palpitations, or edema. RESPIRATORY: Denies cough or dyspnea. GASTROINTESTINAL: Denies abdominal pain, nausea, vomiting, or diarrhea. GENITOURINARY: Denies dysuria or hematuria. SKIN: Denies rash, itching, or wounds. MUSCULOSKELETAL: Reports bilateral calf pain denies back pain, joint pain NEUROLOGIC: Denies headache, numbness, tingling, or weakness. All systems reviewed & are unremarkable except as noted in HPI and below PMFSH Past Medical History Medical History Dyslipidemia associated with type 2 diabetes mellitus High cholesterol HTN (hypertension) Kidney stone Type 2 diabetes mellitus Surgical History Surgical History History of tonsillectomy Hx laparoscopic cholecystectomy 2019 Family History Family History Father Dementia Diabetes mellitus Hypertension Mother Panchondritis Social History Social History Years smoked: 10 Smoking status: Former smoker Tobacco type: cigarettes Alcohol intake: current Drinks per week: 1 Alcohol use details: rare alcohol use Substance use: never Substance use type: does not use Other substance usage details: social drinker, minimally Last use: 1984 Living arrangements: with family Occupation/Education: occupation 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 Please see nursing chart for further information. There is no relevant family history pertinent to the presenting complaint Exam Narrative: GENERAL: Well-appearing, and in no acute distress. HEAD: Normocephalic, atraumatic. EYES: EOMI. No redness or drainage. Conjunctivae normal. ENT: Mucous membranes pink and moist. NECK: Normal AROM. Supple. No lymphadenopathy. CHEST: No respiratory distress. Clear to auscultation. HEART: Regular rate and rhythm. No murmur appreciated. Normal peripheral pulses. ABDOMEN: Soft, nontender, nondistended, normal active bowel sounds. MUSCULOSKELETAL: No bony tenderness. EXTREMITIES: Normal range of motion. No edema, bruising, erythema or warmth of BLEs, negative sky's sign. Left medial calf and right lateral calf point tenderness. Gait steady. SKIN: Warm, dry, no rash. Capillary refill normal. Normal skin turgor. NEURO: No focal deficits. Alert and oriented x3. PSYCH: Normal affect. Course Course Emergency Course: Maira
[2023-08-25 14:33] VITALS: BP 146/86; PULSE 114; RESP 16; TEMP 36.9; O2SAT 99
== END 2023-08-25 14:38 | disposition home or self-care (01) ==
PROVIDERS: Emergency Provider Nurse Practitioner Family; PCP Physician Assistant Medical
DX: R25.2 Cramp and spasm (principal); Z87.891 Personal history of nicotine dependence; E78.5 Hyperlipidemia, unspecified; E11.9 Type 2 diabetes mellitus without complications; E78.00 Pure hypercholesterolemia, unspecified; I10 Essential (primary) hypertension
CPT/HCPCS: 99211; G0463

== ENCOUNTER 2025-06-25 13:09 | Emergency (ER) | payer MEDICARE, SELFPAY ==
--- NOTE | ~2025-06-25 | CT_ITS ---
EXAM: CT abdomen pelvis w con - 06/25/2025 13:40 CDT History: 65 years old Male with RLQ pain, low back pain TECHNIQUE: Multidetector CT of the abdomen and pelvis with intravenous contrast. Coronal and sagittal reformats were also provided for review. Automatic exposure control was used for this study. CONTRAST: 100 cc of Optiray 350 was used for this study. COMPARISON: 10/18/2022. FINDINGS: VISUALIZED CHEST: Visualized lungs are clear. ABDOMEN and PELVIS: LIVER: Hepatic steatosis. GALLBLADDER: Postcholecystectomy. BILE DUCTS: No dilatation. SPLEEN: Within normal limits. PANCREAS: Within normal limits. ADRENAL GLANDS: Within normal limits. KIDNEYS and URETERS: No hydronephrosis or hydroureter. No nephroureterolithiasis. Bilateral simple renal cysts. URINARY BLADDER: Within normal limits. STOMACH and BOWEL: No abnormal bowel wall thickening. No obstruction or pneumatosis. Colonic diverticulosis, without diverticulitis. Normal appendix. REPRODUCTIVE ORGANS: Within normal limits. MESENTERY/PERITONEAL CAVITY: No free fluid or pneumoperitoneum. LYMPH NODES: No abdominal or pelvic lymphadenopathy. ABDOMINAL WALL: Within normal limits. VASCULATURE: Within normal limits. MUSCULOSKELETAL: Multilevel degenerative changes of the spine. IMPRESSION: 1. No evidence of acute pathology in the abdomen and pelvis. 2. Colonic diverticulosis. Reviewed, dictated and finalized at location N.
[2025-06-25 13:13] VITALS: BP 158/70; PULSE 100; RESP 18; TEMP 36.8; O2SAT 96
[2025-06-25 13:29] LABS: Hematocrit 50.5 % (42.0-52.0); Hemoglobin 15.7 g/dL (14.0-18.0); Immature Granulocyte Percent A 0.4 % (0-0.5); Lymphocytes Absolute Auto 2.88 K/mm3 (0.9-3.2); Mean Corpuscular HGB Conc 31.1 g/dl (32-36); Mean Corpuscular Hemoglobin 25.5 pg (26-34); Mean Corpuscular Volume 82.1 fl (80-100); Nucleated Red Blood Cells Absolute Auto 0.000 K/mm3 (0.0-0.012); Nucleated Red Blood Cells Perc 0.0 % (0.0-0.2); Platelet Count Result 299 k/mm3 (150-375); Red Blood Count 6.15 M/mm3 (4.6-6.20); White Blood Count 9.4 K/mm3 (4.5-10.0)
--- NOTE | 2025-06-25 13:40 | ED_ITS ---
HPI - Back Pain/Injury General Chief Complaint: Back Pain/Injury Stated Complaint: R flank pain, R groin pain Time Seen by Provider: 06/25/25 13:21 Source: patient Mode of arrival: ambulatory Limitations: no limitations History of Present Illness HPI Narrative: This is a 65 year old male that presents to the ER for right sided low back pain. Worse with standing, relieved with rest. Reports pain radiates into the right lower quadrant. Reports histor of kidney stones. Denies fever, dysuria, hematuria. Related Data Home Medications ?Medication ?Instructions ?Recorded ?Confirmed ?Last Taken ?Type omega 7-tnu-rsh-fish oil 1,000 mg 2 cap PO DAILY 03/2805/15/25 Unknown History (120 mg-180 mg) capsule (Fish Oil) Held on 05/13/25. Instructions: .Provider Order cholecalciferol (vitamin D3) 125 125 mcg PO DAILY 11/2305/15/25 Unknown History mcg (5,000 unit) capsule Allergies Allergy/AdvReac Type Severity Reaction Status Date / Time No Known Allergies Allergy Verified 06/25/25 13:15 Review of Systems 2 Review of Systems: All systems reviewed & are unremarkable except as noted in HPI and below PMFSH Past Medical History Medical History Vitamin D deficiency Kidney stone Type 2 diabetes mellitus Dyslipidemia associated with type 2 diabetes mellitus High cholesterol HTN (hypertension) Surgical History Surgical History History of tonsillectomy Hx laparoscopic cholecystectomy 2019 Family History Family History Father Dementia Diabetes mellitus Hypertension Mother Panchondritis Social History Social History Social History: 02/06/25 very confident with medical forms Years smoked: 10 Smoking status: Former smoker Tobacco type: cigarettes Second hand tobacco smoke exposure: Yes Alcohol intake: current Drinks per week: 1 Alcohol use details: rare alcohol use, social drinker, minimally Substance use: never Substance use type: does not use Do You Feel Safe in your Home?: Yes Lack of Transportation: No Lack of Food: Never True Current Housing: I Have Housing Concerned About Future Housing: No Difficulty Paying Gas/Electric Bills: No Difficulty Paying for Meds: No Currently Unemployed: No Education: Associate Degree Difficulty w/ Childcare or Family Care: No Living arrangements: with family Occupation/Education: occupation Additional occupation/education comments: [employer] Gender identity (if verbalized by the patient): Male Sexual Orientation (if Verbalized by the Patient): Straight or Heterosexual Spiritual care concerns: No Exam 2 Narrative: GENERAL: Well-appearing, well-nourished, and in no acute distress. HEAD: Normocephalic, atraumatic. EYES: EOMI. CHEST: Clear to auscultation. No respiratory distress. No wheezes rales or rhonchi HEART: Regular rate and rhythm. No murmur heard. Normal peripheral pulses. ABDOMEN: Soft, nontender, nondistended, normal active bowel sounds. EXTREMITIES: Normal range of motion. No edema. SKIN: Warm, dry, no rash. NEURO: No focal deficits. Alert and oriented x3. PSYCH: Normal mood and affect Course Course Emergency Course: Patient updated on his workup and agrees with plan of care Vital Signs Vital signs: Vital Signs Temperature 98.3 F 06/25/25 13:13 Pulse Rate 100 06/25/25 13:13 Respiratory Rate 18 06/25/25 13:13 Blood Pressure 158/70 H 06/25/25 13:13 Pulse Oximetry 96 06/25/25 13:13 Temperature 98.3 F 06/25/25 13:13 Pulse Rate 100 06/25/25 13:13 Respiratory Rate 18 06/25/25 13:13 Blood Pressure 158/70 H 06/25/25 13:13 Pulse Oximetry 96 06/25/25 13:13 MDM - Back Pain/Injury MDM Narrative Medical decision making narrative: Patient presents the emergency department for right-sided back pain. He is afebrile and nontoxic appearing his vitals are stable. Cbc without leukocytosis. Metabolic panel with normal kidney function. Urine without evidence of infection. CT abdomen and pelvis without acute findings. Patient updated on his workup and agrees with plan of care. He is to follow up with primary provider. He was given warnings to return to the ER Differential Diagnosis Differential diagnosis: Likely lumbar radiculopathy, sciatica, strain of lumbar region and renal colic Lab Data Attestation: I reviewed the patient's lab results. 06/25/25 13:19 06/25/25 13:19 Labs: Lab Results 06/25/25 06/25/25 Range/Units 13:19 13:23 WBC 9.4 (4.5-10.0) K/mm3 RBC 6.15 (4.6-6.20) M/mm3 Hgb 15.7 (14.0-18.0) g/dL Hct 50.5 (42.0-52.0) % MCV 82.1 (80-100) fl MCH 25.5 L (26-34) pg MCHC 31.1 L (32-36) g/dl RDW 16.0 H (11.5-14.5) % Plt Count 299 (150-375) k/mm3 MPV 10.1 (7.4-10.4) fl Immature Gran % (Auto) 0.4 (0-0.5) % Neut % (Auto) 57.2 (45.5-73.1) % Lymph % (Auto) 30.7 (18.3-44.2) % Rhea % (Auto) 8.4 (2.6-8.5) % Eos % (Auto) 2.3 (0-4.4) % Baso % (Auto) 1.0 (0.2-1.2) % Lymph # (Auto) 2.88 (0.9-3.2) K/mm3 Rhea # (Auto) 0.8 H (0.1-0.6) K/mm3 Eos # (Auto) 0.2 (0-0.3) K/mm3 Baso # (Auto) 0.1 (0.0-0.1) K/mm3 Abs Immat Gran (auto) 0.04 H (0.00-0.031) K/mm3 Absolute Neuts (auto) 5.4 (1.3-6.7) K/mm3 Absolute Nucleated RBC 0.000 (0.0-0.012) K/mm3 Nucleated RBC % 0.0 (0.0-0.2) % Sodium 136 L (137-145) mmol/L Potassium 4.1 (3.4-5.0) mmol/L Chloride 100 (98-107) mmol/L Carbon Dioxide 22 (22-30) mmol/L Anion Gap 14 H (4-12) mmol/L BUN 24 H (9-20) mg/dL Creatinine 0.98 (0.7-1.3) mg/dL Estim Creat Clear Calc 78 ml/min Estimated GFR > 60 (59 - ) Glucose 174 H (65-110) mg/dL Calcium 9.9 (8.4-10.2) mg/dL Total Bilirubin 1.1 (0.2-1.3) mg/dL AST 31 (17-59) U/L ALT 22 (6-50) U/L Alkaline Phosphatase 30 L (38-126) U/L Total Protein 8.1 (6.3-8.2) g/dL Albumin 4.9 (3.5-5.1) g/dL Urine Color Yellow (Yellow) Urine Appearance Clear (Clear) Urine pH 5.5 (5.0-9.0) Ur Specific [place] 1.027 (1.001-1.035) Urine Protein Negative (Negative) mg/dL Urine Glucose (UA) 3+ H (Negative) mg/dL Urine Ketones Negative (Negative) mg/dL Ur Blood (Man) Trace (Negative) Urine Nitrate Negative (Negative) Urine Bilirubin Negative (Negative) Urine Urobilinogen 0.2 (<2.0) mg/dL Leukocyte Esterase Rfl Negative (Negative) MIKE/UL Urine RBC 0-2 (0-2) /hpf Urine WBC 0-5 (0-3) /hpf Ur Squamous Epith Cells None seen (Few) /hpf Urine Bacteria None seen /hpf Urine Casts 0-2 Imaging Data Radiologist's impression: ITS Impressions Abdomen/Pelvis CT 06/25/25 13:56 IMPRESSION: 1. No evidence of acute pathology in the abdomen and pelvis. 2. Colonic diverticulosis. Critical Care Time Critical Care Time Critical Care Time: No Discharge Plan Discharge Clinical Impression: Low back pain Qualifiers: Chronicity: acute Back pain laterality: right Sciatica presence: without sciatica Qualified Code(s): M54.50 - Low back pain, unspecified Patient Disposition: Home Condition: Stable Instructions: Acute Low Back Pain (ED) Additional Instructions: Return to the ER if you experience fever, abdominal pain with nausea and vomiting, you are unable to keep down liquids or solids, pain or burning with urination, blood in the urine or any other symptoms that are concerning to you Tylenol or Ibuprofen as needed for pain. Muscle relaxer as needed for pain. Lidocaine patch to the area of pain as needed Follow up with your primary care doctor Patient Language: Kyrgyz Prescriptions: New lidocaine 5 % adhesive patch,medicated 1 patch topical DAILY Qty: 15 0RF Rx Instructions: leave on most painful area for up to 12 hrs cyclobenzaprine 10 mg tablet 10 mg PO TID PRN (Reason: muscle spasm) Qty: 14 0RF No Action icosapent ethyl [Vascepa] 1 gram capsule 2 g PO BID Qty: 360 1RF tamsulosin [Flomax] 0.4 mg capsule 0.4 mg PO QHS Qty: 14 0RF ciprofloxacin HCl [Cipro] 500 mg tablet 500 mg PO Q12H Qty: 14 0RF metronidazole 500 mg tablet 500 mg PO Q8H Qty: 21 0RF omega 0-bho-fuq-fish oil [Fish Oil] 1,000 mg (120 mg-180 mg) capsule 2 cap PO DAILY cholecalciferol (vitamin D3) 125 mcg (5,000 unit) capsule 125 mcg PO DAILY ergocalciferol (vitamin D2) [Vitamin D2] 1,250 mcg (50,000 unit) capsule 1,250 mcg PO WEEKLY Qty: 12 3RF metformin 500 mg tablet 1,000 mg PO BID Qty: 360 1RF Jardiance 25 mg tablet 25 mg PO DAILY Qty: 90 1RF (DME) pen needle, diabetic 31 gauge x 3/16 needle See Rx Instructions .ROUTE .COMPLEX Qty: 100 0RF Dose Instruction: USE ONE DAILY WITH TRESIBA INJECTION Rx Instructions: USE ONE DAILY WITH TRESIBA INJECTION saxagliptin 5 mg tablet 5 mg PO DAILY Qty: 90 1RF glimepiride 2 mg tablet 2 mg PO BID Qty: 180 0RF Rx Instructions: ADMINISTER WITH BREAKFAST AND DINNER hydrochlorothiazide 50 mg tablet 25 mg PO DAILY Qty: 45 0RF rosuvastatin 10 mg tablet 10 mg PO DAILY Qty: 90 0RF olmesartan 20 mg tablet 20 mg PO DAILY Qty: 90 0RF insulin degludec [Tresiba FlexTouch U-100] 100 unit/mL (3 mL) insulin pen 30 unit subcut QHS Qty: 15 0RF fenofibrate 160 mg tablet 160 mg PO DAILY Qty: 90 0RF Follow-up/Referrals: Reji,Liz A., PA-C [Primary Care Provider, [facility]]
[2025-06-25 13:41] LABS: Add Urine Microscopic? YES; Appearance Urine Clear (Clear); Glucose Urine UA 3+ mg/dL (Negative); Leukocyte Esterase Ur Negative LEU/UL (Negative); Nitrate Urine Negative (Negative); Non Pathogenic Casts 0-2; Specific Grav Ur 1.027 (1.001-1.035)
[2025-06-25 13:41] LABS: Alanine Aminotransferase 22 U/L (6-50); Albumin Level 4.9 g/dL (3.5-5.1); Alkaline Phosphatase 30 U/L (38-126); Anion Gap 14 mmol/L (4-12); Aspartate Amino Transferase 31 U/L (17-59); Bilirubin,Total 1.1 mg/dL (0.2-1.3); Blood Urea Nitrogen 24 mg/dL (9-20); Calcium 9.9 mg/dL (8.4-10.2); Carbon Dioxide 22 mmol/L (22-30); Chloride 100 mmol/L (98-107); Estimated CRCL calculation 78 ml/min; Estimated Glomerular Filt Rate > 60; Glucose 174 mg/dL (65-110); Potassium 4.1 mmol/L (3.4-5.0); Sodium 136 mmol/L (137-145); Total Protein 8.1 g/dL (6.3-8.2)
--- OUTSIDE RECORDS SUMMARY | 2025-06-25 14:21 | XMS_ITS | Clinical Summary ---
Author Organization [facility] Address [address] [place] [address] Care Team Providers Care Oak Tanner Name Role Phone Wood Beavers MD Primary Care Provider [phone] Social History Tobacco Use Types Packs/Day Years Used Date Smoking Tobacco: Never Assessed Sex and Gender Information Value Date Recorded Sex Assigned at Not on file Legal Sex Male 7:19 PM CDT Gender Identity Not on file Sexual Orientation Not on file Plan of Treatment Health Maintenance Due Date Last Done Comments Colorectal Cancer Screening Colonoscopy (10 Years) 1959 Hepatitis C 1977 DTaP, Tdap and Td Vaccines ( 1 - Tdap) 1978 Pneumococcal Vaccine: 50+ Years (1 of 1 - PCV) 2009 Zoster Vaccines (1 of 2) 2009 COVID-19 Vaccine (4 - 2024-2 6 season) 2025 10/20/2021, 01/11/2021, 12/10/2020 RSV Immunization or 60+ Years (1 - 1-dose 75+ series) 2034 Meningococcal B Vaccine Aged Out No l onger eligible based on patient's age to complete this topic Meningococcal Vaccine Aged Out No jeri black eligible based on patient's age to complete this topic RSV Immunizations Under 20 Months Aged Out No longer eligible b ased on patient's age to complete this topic Insurance [employer] Care Teams Oak Tanner Relationship Specialty Start Date End Date Wood Beavers MD [address] [place] [phone] PCP - General FAMILY PRACTICE 09/05/22
--- OUTSIDE RECORDS SUMMARY | 2025-06-25 15:09 | XMS_ITS | Clinical Summary ---
Author Organization [facility] Address [address] [place] [address] Care Team Providers Care Household Manager Name Role Phone Wood Beavers MD Primary Care Provider [phone] [phone] Social History Tobacco Use Types Packs/Day Years [...] patient's age to complete this topic Insurance [employer] Care Teams Household Manager Relationship Specialty Start Date End Date Wood Beavers MD [address] [place] [id number] PCP - General FAMILY PRACTICE 09/05/22
[2025-06-25 15:13] VITALS: PULSE 68; RESP 16; O2SAT 97
== END 2025-06-25 15:14 | disposition home or self-care (01) ==
PROVIDERS: Emergency Medicine; Emergency Provider Physician Assistant; PCP Physician Assistant Medical
DX: M54.50 Low back pain, unspecified (principal); Z87.891 Personal history of nicotine dependence
CPT/HCPCS: 36415; 74177; 80053; 81001; 85025; 99284; Q9967

== ENCOUNTER 2025-07-16 13:03 | Outpatient (CLI) | payer MEDICARE, SELFPAY ==
--- OUTSIDE RECORDS SUMMARY | 2025-07-16 13:06 | XMS_ITS | Clinical Summary ---
Author Organization [facility] Address [facility] [place] [address] Care Team Providers Care Chicken Handler Name Role Phone Wood Beavers MD Primary Care Provider [phone] [phone] Social History Tobacco Use Types Packs/Day Years [...] patient's age to complete this topic Insurance [employer] Care Teams Chicken Handler Relationship Specialty Start Date End Date Wood Beavers MD [address] [place] [phone] PCP - General FAMILY PRACTICE 09/05/22
--- NOTE | 2025-07-16 13:40 | NEURO_ITS ---
Impression: # Type II Diabetic complains of numbness of hands. # Ulnar Neuropathy across the elbow, right more than left. # Normal Needle/ EMG exam. Nerve Conduction Studies ?Stim Site NR Peak (ms) P-T Amp (?V) Site1 Site2 Delta-P (ms) Dist (cm) Lalit (m/s) Left Median Anti Sensory (2-3nd Digit) Wrist ? 4.1 23.3 Wrist 2-3nd Digit 4.1 14.0 34 Wrist ? 4.4 13.7 Wrist 2-3nd Digit 4.1 14.0 34 Right Median Anti Sensory (2-3nd Digit) Wrist ? 3.4 34.2 Wrist 2-3nd Digit 3.4 14.0 41 Wrist ? 3.4 34.6 Wrist 2-3nd Digit 3.4 14.0 41 Left Radial Anti Sensory (Base 1st Digit) Wrist ? 2.1 16.8 Wrist Base 1st Digit 2.1 0.0 Right Radial Anti Sensory (Base 1st Digit) Wrist ? 1.9 18.6 Wrist Base 1st Digit 1.9 0.0 Left Ulnar Anti Sensory (5th Digit) Wrist ? 2.5 32.7 Wrist 5th Digit 2.5 14.0 56 Right Ulnar Anti Sensory (5th Digit) Wrist ? 2.5 31.8 Wrist 5th Digit 2.5 14.0 56 ?Stim Site NR Onset (ms) O-P Amp (mV) Site1 Site2 Delta-0 (ms) Dist (cm) Lalit (m/s) Left Median Motor (Abd Poll Brev) Wrist ? 3.9 2.5 Elbow Wrist 5.8 33.0 57 Elbow ? 9.7 4.0 Right Median Motor (Abd Poll Brev) Wrist ? 3.7 4.6 Elbow Wrist 5.6 31.0 55 Elbow ? 9.3 4.6 Left Ulnar Motor (Abd Dig Minimi) Wrist ? 2.7 6.5 A Elbow Wrist 6.0 32.0 53 A Elbow ? 8.7 4.8 B Elbow Wrist 4.6 24.0 52 B Elbow ? 7.3 5.5 Right Ulnar Motor (Abd Dig Minimi) Wrist ? 2.5 6.3 A Elbow Wrist 6.4 29.0 45 A Elbow ? 8.9 4.9 B Elbow Wrist 4.1 21.0 51 B Elbow ? 6.6 4.6 F Wave Studies ?NR F-Lat (ms) L-R F-Lat (ms) Left Median (Mrkrs) (Abd Poll Brev) ? 30.59 0.78 Right Median (Mrkrs) (Abd Poll Brev) ? 29.81 0.78 Left Ulnar (Mrkrs) (Abd Dig Min) ? 29.77 0.78 Right Ulnar (Mrkrs) (Abd Dig Min) ? 28.99 0.78 Electromyography ?Side Muscle Nerve Root Ins Act Fibs Amp Dur Recrt Comment Right 1stDorInt Ulnar C8-T1 Nml Nml Nml Nml Nml Right Ext Indicis Radial (Post Int) C7-8 Nml Nml Nml Nml Nml Right Ext Digitorum Radial (Post Int) C7-8 Nml Nml Nml Nml Nml Right BrachioRad Radial C5-6 Nml Nml Nml Nml Nml Right PronatorTeres Median C6-7 Nml Nml Nml Nml Nml Right Abd Poll Brev Median C8-T1 Nml Nml Nml Nml Nml Right ABD Dig Min Ulnar C8-T1 Nml Nml Nml Nml Nml Right FlexPolLong Median (Ant Int) C7-8 Nml Nml Nml Nml Nml Right Abd Poll Long Radial (Post Int) C7-8 Nml Nml Nml Nml Nml Left 1stDorInt Ulnar C8-T1 Nml Nml Nml Nml Nml Left Ext Indicis Radial (Post Int) C7-8 Nml Nml Nml Nml Nml Left Ext Digitorum Radial (Post Int) C7-8 Nml Nml Nml Nml Nml Left BrachioRad Radial C5-6 Nml Nml Nml Nml Nml Left PronatorTeres Median C6-7 Nml Nml Nml Nml Nml Left Abd Poll Brev Median C8-T1 Nml Nml Nml Nml Nml Left ABD Dig Min Ulnar C8-T1 Nml Nml Nml Nml Nml Left FlexPolLong Median (Ant Int) C7-8 Nml Nml Nml Nml Nml Left Abd Poll Long Radial (Post Int) C7-8 Nml Nml Nml Nml Nml
== END 2025-07-16 13:04 | disposition home or self-care (01) ==
LOC: ANHNEURO 13:04
PROVIDERS: PCP Physician Assistant Medical; Visit Provider Physician Assistant Medical
DX: R20.2 Paresthesia of skin (principal); G56.23 Lesion of ulnar nerve, bilateral upper limbs
CPT/HCPCS: 95886; 95911

== ENCOUNTER 2025-09-25 09:28 | Outpatient (CLI) | payer MEDICARE, SELFPAY ==
--- NOTE | ~2025-09-25 | CT_ITS ---
EXAMINATION: CT abdomen pelvis w con DATE: 09/25/2025 09:57 INDICATION: Unspecified abdominal pain TECHNIQUE: Computed tomography (CT) of the abdomen and pelvis was performed with 100 cc Omnipaque 350 intravenous contrast. The dose-length product was 1481.96 mGy-cm. Automated exposure control and iterative reconstruction technique were employed. COMPARISON: CT dated 06/25/2025 FINDINGS: There is dependent atelectasis. Heart size normal. No significant pleural or pericardial effusion. Fatty infiltration of the liver. Status post cholecystectomy. There are bilateral renal cysts. There are nonobstructing bilateral renal stones. No ureteral stones or hydronephrosis. The spleen, pancreas, adrenal glands are unremarkable. Nonobstructive bowel gas pattern. Normal appendix. Moderate lumbar spondylosis with facet hypertrophy at multiple levels. No significant vascular abnormality. No lymphadenopathy. No free air or free fluid. IMPRESSION: 1. Nonobstructing bilateral nephrolithiasis. 2: Bilateral renal cysts. 3: Fatty infiltration of the liver. Reviewed, dictated and finalized at location I. RANCE LEGAL ASSISTANT
[2025-09-25 09:54] LABS: Estimated Glomerular Filt Rate 55
--- OUTSIDE RECORDS SUMMARY | 2025-09-25 10:14 | XMS_ITS | Clinical Summary ---
Author Organization [facility] Address [address] [place] [address] Care Team Providers Care Electorate Officer Name Role Phone Wood Beavers MD Primary Care Provider [phone] [phone] Social History Tobacco Use Types Packs/Day Years [...] 2024-2 6 season) 2025 10/20/2021, 01/11/2021, 12/10/2020 Influenza Adult (#1) 2025 07/12/2022 RSV Immunization or 60+ Years (1 - 1-dose 75+ series) 2034 Hepatitis A Vaccines Aged Out No long er eligible based on patient's age to complete this topic Meningococcal B Vaccine Aged Out No l onger eligible based on patient's age to complete this topic Meningococcal Vaccine Aged Out No jeri black eligible based on patient's age to complete this topic RSV Immunizations Under 20 Months Aged Out No longer eligible b ased on patient's age to complete this topic Insurance [employer] Care Teams Electorate Officer Relationship Specialty Start Date End Date Wood Beavers MD [address] [place] [id number] PCP - General FAMILY PRACTICE 09/05/22
== END 2025-09-25 09:29 | disposition home or self-care (01) ==
PROVIDERS: PCP Physician Assistant Medical; Visit Provider Nurse Practitioner Adult Health
DX: R10.9 Unspecified abdominal pain (principal); M54.50 Low back pain, unspecified; K57.90 Diverticulosis of intestine, part unspecified, without perforation or abscess without bleeding; N28.1 Cyst of kidney, acquired; K76.0 Fatty (change of) liver, not elsewhere classified; N20.0 Calculus of kidney
CPT/HCPCS: 74177; Q9967

== ENCOUNTER 2025-09-29 12:09 | Outpatient (CLI) | payer MEDICARE, SELFPAY ==
[2025-09-29 13:02] LABS: Anion Gap 10 mmol/L (4-12); Blood Urea Nitrogen 22 mg/dL (9-20); Calcium 9.4 mg/dL (8.4-10.2); Carbon Dioxide 23 mmol/L (22-30); Chloride 103 mmol/L (98-107); Estimated Glomerular Filt Rate > 60; Glucose 82 mg/dL (65-110); Potassium 4.0 mmol/L (3.4-5.0); Sodium 136 mmol/L (137-145)
== END 2025-09-29 12:10 | disposition home or self-care (01) ==
LOC: ANHSURGERY 12:17
PROVIDERS: Anesthesiology; PCP Physician Assistant Medical; Visit Provider Plastic Surgery
DX: E11.9 Type 2 diabetes mellitus without complications (principal)
CPT/HCPCS: 36415; 80048

== ENCOUNTER 2025-10-08 03:52 | Day surgery (SDC) | payer MEDICARE, SELFPAY ==
[2025-09-24 09:30] VITALS: BMI 40.5
--- NOTE | 2025-09-24 09:41 | PC.NURSE ---
[facility] has started construction of its new state of the art ER which will open Spring 2026. With this, we anticipate parking may be a challenge for some our surgical patients and families. Parking spaces are limited but are available for all Surgical, obstetrics, and ER patients sharing this lot. If you arrive and find you are having a hard time finding a parking space, please note that we understand the challenges, please drive around the hospital and park near Hospital Entrance 1. When you enter this entrance, you can ask a volunteer to direct or take you back to the surgical waiting area to check in. We appreciate everyone?s understanding of these expected challenges while we build for your future. Report to the Outpatient Waiting Room, entrance under the green pavilion located off [address], at time ___12:15pm____ on date __10/08/25 . Planned Procedure Time: ____2:15pm____.? Time changes happen often and if your time is changed the preop area will call you the afternoon before. - You and your visitor will be asked to self-screen and do not enter if you have any COVID symptoms. Please call surgeon if you need to reschedule. - A mask is optional within the hospital at this time. - No food or drink from midnight until time of surgery. No smoking, or chewing tobacco (or any form of nicotine). No chewing gum, candy or mints am of. Take only the following medications with a SIP of water on the morning of surgery: NONE DO NOT STOP ANY OF YOUR OTHER PRESCRIPTION MEDICATIONS PRIOR TO SURGERY EXCEPT THE FOLLOWING Hold all vitamins and supplements for 3 days per anesthesiologist. Medications to discontinue per physician NONE Date to take last dose NONE Please no make-up, nail belarusian, hairspray, perfume, deodorant, or body powder the day of surgery.? No jewelry (including any body piercings) or valuables the day of surgery, leave them at home.? Please take a shower or bath the night before, or the morning of, surgery with an antibacterial soap.? Wear comfortable, loose fitting clothing.? - Jewelry must be removed prior to entering the operating room.? Rings and piercings that are not removed may be cut off. - The hospital will not accept responsibility for valuables.? - Please leave all valuables, including medications, at home the day of surgery. If you are going home after surgery, a licensed trailer tank truck driver must drive you home.? - NO public transportation without another adult if you receive anesthesia. - We recommend that an adult stay with you for 24 hours following discharge. - We also recommend that you do not drive, make important decision, drink alcoholic beverages, or take any drugs that were not prescribed by your health care provider for at least 24 hours after your discharge time. Follow any additional instructions given to you from your surgeon. Telephone instructions given to __Patient and asked if any additional questions and then verbalized understanding. Patient advised to call surgeon office or pre surgery nurse liaison [phone] if any additional questions.
--- OUTSIDE RECORDS SUMMARY | 2025-10-08 03:55 | XMS_ITS | Clinical Summary ---
Author Organization [facility] Address [address] [place] [address] Care Team Providers Care Sales Order Administrator Name Role Phone Wood Beavers MD Primary Care Provider [phone] [phone] Social History Tobacco Use Types Packs/Day Years [...] patient's age to complete this topic Insurance [employer] Care Teams Sales Order Administrator Relationship Specialty Start Date End Date Wood Beavers MD [address] [place] [phone] PCP - General FAMILY PRACTICE 09/05/22
--- OUTSIDE RECORDS SUMMARY | 2025-10-08 03:55 | XMS_ITS | Clinical Summary ---
Author Organization [address] [facility] Address [address] [place] [address] Care Team Providers Care Hydro Pneumatic Tester Name Role Phone No, Pcp BULLDOZER/LOADER/COMPACTOR/SCRAPER Primary Care Provider Unavailabl e Medications No known medications Social History Tobacco Use Types Packs/Day Years Used Date Smoking Tobacco: Never Assessed Sex and Gender Information Value Date Recorded Sex Assigned at Not on file Legal Sex Male 11:47 AM EDT Gender Identity Not on file Sexual Orientation Not on file Plan of Treatment Not on file Medical Devices Not on file Care Teams Hydro Pneumatic Tester Relationship Specialty Start Date End Date No, Pcp, BULLDOZER/LOADER/COMPACTOR/SCRAPER N/A Do not use PCP - General Family Medicine 08/21/20
--- NOTE | 2025-10-08 06:40 | P.OP_ITS ---
Procedure Note - Detailed Date of Procedure 10/08/25 Pre-op Diagnosis Mario Carpal and Cubital Tunnel Synd Post-op Diagnosis Same Procedure Performed left ectr and CuTR Surgeon Effie Decker MD [employer] ernestine harris pa-c Anesthesia MAC Description of Procedure INFORMED CONSENT: The patient was seen and examined and marked in the pre-op area.? The patient signed the consent form. PROCEDURE IN DETAIL:The patient taken back to OR on the stretcher in supine position. Time out performed with anesthesia, surgeon and staff agreeing on patient's name site and surgery to be performed SCDs were placed on the lower extremities and inflated. A tourniquet was placed on {left} upper extremity and antibiotics given IV After anesthesia administered sedation I injected {10}cc 1%lido with epi and 0.5% marcaine plain at the operative sites The?{left upper extremity}?was prepped and draped in sterile fashion the??{left upper extremity} was? exsanguinated with Esmarch bandage and tourniquet inflated to 250mmHg I made a transverse incision in the {left} volar distal wrist crease through skin and dermis with 15 blade scalpel.? Littler scissors spread down to antebrachial fascia. A small incision was made in antebrachial fascia allowing access to Carpal tunnel. I proceeded with sequential dilation staying in line with the ring finger and hugging the hook of the hamate.? I then used the synovial elevator to free any adhesions from the underside of the transverse carpal ligament. Next I was able to insert the Microaire endoscopic carpal tunnel device with direct visualization of the transverse fibers on the monitor and proceeded with complete segmental retrograde release of the ligament in its entirety.? I irrigated with normal saline and closed with 4-0 monocryl for dermis and subcuticular closure. I next proceeded with making a longitudinal incision between two heads for flexor carpi ulnaris at end of {left} cubital tunnel with 15 blade scalpel.? Littler scissors were used to spread down to FCU fascia.? An incision was made in FCU fascia and ulnar nerve identified exiting cubital tunnel.? I proceeded with complete retrograde release of the cubital tunnel including large hypertrophied anconeus and going 7cm proximal for the tight intermuscular septum.? epineurial thickening was noted and released. The nerve otherwise appeared healthy with visible vaso nervorum.? There was no subluxation on full elbow range of motion. ? I irrigated with normal saline and closure with3-0 vicryl and 4-0 monocryl. The incisions were covered with Dermabond then 4x4s, spencer, and a posterior elbow and volar wrist splint for patient safety, security and comfort and secu red with patsy bandages after the tourniquet was let down noting the hand was warm and well perfused.? Patient awaken from anesthesia and transferred to recovery in stable condition Complications - none EBL- 1cc Disposition - home in stable condition Ernestine Harris PA-C was essential for positioning, retraction, closure and dressing placement. [facility] Billing Surgery - Charge Forward: Surgery Billing ([id number] same for ernestine mccormack )
--- NOTE | 2025-10-08 06:40 | WPDHPUPDATE1 ---
History and Physical Update Update Date/Time: 10/08/25 06:40 Patient seen and examined in pre-operative holding area. No interval change in medical history or symptoms. Patient recalls previous discussion of benefits and alternatives to procedure. Continues to desire to proceed with left endoscopic possible open carpal tunnel release and left cubital tunnel release . Reviewed procedure, post-op expectations and risks including but not limited to bleeding, infection, injury to tendon/nerve/vessel, decreased hand function, stiffness, RSD, no change or worsening of symptoms. I discussed the possible use of assistants and their participation in the case. Patient stated understanding and signed the consent form wishing to proceed.
[2025-10-08] MEDS: ACETAMINOPHEN 500 MG TABLET 1000 MG PO (07:10)
[2025-10-08 07:12] VITALS: BP 139/69; PULSE 99; TEMP 37.1; O2SAT 97; BMI 41.0
[2025-10-08] MEDS: LACTATED RINGERS 1,000 ML 30 ML IV CONT (07:15)
--- NOTE | 2025-10-08 08:25 | WPDANESEPPF ---
Anes - Initial Pre Proc Eval Procedure: Operation Date: 10/08/25 08:45 Proposed Procedures p Left Endoscopic Carpal Tunnel Release, Possible Open, Left Cubital Tunnel Release - Effie Decker MD Date/Time: 10/08/25 08:25 Surgeon: Effie Decker MD Pre Op Diagnosis: Mario Carpal and Cubital Tunnel Synd Patient Data Age: 65 Gender: M Height: 1.68 m Weight: 115.2 kg Last Vital Signs Temp 98.8 F 10/08/25 07:12 Pulse 99 10/08/25 07:12 BP 139/69 10/08/25 07:12 Pulse Ox 97 10/08/25 07:12 O2 Del Method Room Air 10/08/25 07:12 Allergies Allergy/AdvReac Type Severity Reaction Status Date / Time No Known Allergies Allergy Verified 10/08/25 07:10 Home Medications ?Medication ?Instructions ?Recorded ?Confirmed ?Type cholecalciferol (vitamin D3) 125 125 mcg PO DAILY 12/04/23 10/08/25 History mcg (5,000 unit) capsule ergocalciferol (vitamin D2) 1,250 1,250 mcg PO WEEKLY #12 caps 12/31/24 10/08/25 Rx mcg (50,000 unit) capsule (Vitamin D2) icosapent ethyl 1 gram capsule 2 g (2 x 1 gram) PO BID #360 caps 05/15/25 10/08/25 Rx (Vascepa) saxagliptin 5 mg tablet 5 mg PO DAILY #90 tabs 05/16/25 10/08/25 Rx empagliflozin 25 mg tablet 25 mg PO DAILY #90 tabs 06/30/25 10/08/25 Rx (Jardiance) pen needle, diabetic 31 gauge x #100 ea 07/03/25 09/24/25 Rx 3/16 Tresiba FlexTouch U-100 100 30 unit (0.3 mL) subcut QHS #15 mL 08/11/25 10/08/25 Rx unit/mL (3 mL) subcutaneous pen (insulin degludec) glimepiride 2 mg tablet 2 mg PO BID #180 tabs 08/18/25 10/08/25 Rx hydrochlorothiazide 50 mg tablet 25 mg (1/2 x 50 mg) PO DAILY #45 08/18/25 10/08/25 Rx tabs olmesartan 20 mg tablet 20 mg PO DAILY #90 tabs 09/03/25 10/08/25 Rx rosuvastatin 10 mg tablet 10 mg PO DAILY #90 tabs 09/03/25 10/08/25 Rx fenofibrate 160 mg tablet 160 mg PO DAILY #90 tabs 09/19/25 10/08/25 Rx Bifidobacterium combo no.9 1 cap PO DAILY 09/24/25 10/08/25 History empagliflozin 25 mg tablet 25 mg PO DAILY 09/29/25 10/08/25 History (Jardiance) metformin 500 mg tablet 500 mg PO BID 09/29/25 10/08/25 History olmesartan 20 mg tablet (Benicar) 20 mg PO DAILY 09/29/25 10/08/25 History tramadol 50 mg tablet 50 mg PO Q6H PRN pain #12 tabs 10/08/25 Rx Laboratory Tests 10/08/25 06:53 POC Capillary Glucose 120 H mg/dl (65-105) Patient hx anesthesia problems: none Family hx anesthesia problems: none Results Review: All pre-operative results and documents have been reviewed as part of the pre-operative evaluation. [facility] Past Medical History Medical History Diverticulosis Vitamin D deficiency Kidney stone Type 2 diabetes mellitus Dyslipidemia associated with type 2 diabetes mellitus High cholesterol HTN (hypertension) Surgical History Surgical History History of tonsillectomy Hx laparoscopic cholecystectomy 2020 Family History Family History Father Dementia Diabetes mellitus Hypertension Mother Panchondritis Social History Social History Social History: 02/06/25 very confident with medical forms Smoking packs per day: 0.5 Smoking cigarettes per day: 10.0 Years smoked: 10 Smoking pack-years: 5.00 Smoking status: Former smoker Tobacco type: cigarettes Second hand tobacco smoke exposure: No Smoking end date: 10/23/89 Alcohol intake: current Drinks per week: 1 Alcohol use details: few per month Substance use: never Substance use type: does not use Lack of Transportation: No Lack of Food: Never True Current Housing: I Have Housing Concerned About Future Housing: No Difficulty Paying Gas/Electric Bills: No Difficulty Paying for Meds: No Currently Unemployed: No Education: Associate Degree Difficulty w/ Childcare or Family Care: No Living arrangements: with family Additional living arrangements comments: Occupation/Education: occupation 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 Gender identity (if verbalized by the patient): Male Sexual Orientation (if Verbalized by the Patient): Straight or Heterosexual Spiritual care concerns: No Anes - Eval Final PreProcedure Day of Procedure 10/08/25 08:25 Patient weight: morbidly obese Lungs: normal air movement Airway: Mallampati scale class II Neurological: alert and oriented Last oral intake: >/= 8 hours ASA classification: III Emergent: no Anesthetic plan: proceed Anesthesia type and monitoring: general GIVS and standard monitoring Results Review: All pre-operative results and documents have been reviewed as part of the pre-operative evaluation. Hyperlipidemia, DM fsbs 120, ex smoker. Informed Consent: The patient's anesthetic plan and its attendant risks and benefits were discussed with the patient/family/POA. Questions were solicited and answers provided to the satisfaction of the patient/family/POA.
[2025-10-08] MEDS: ceFAZolin 2 GM in SODIUM CHLORIDE 0.9% IV 50 ML 100 ML IVPB (08:38)
[2025-10-08] MEDS: LIDO 1%/EPINEPHRINE 1:100,000 20 ML VIAL 10 ML INFILTRATE (08:50)
[2025-10-08] MEDS: BUPivacaine HCL 0.5% 10 ML AMP INFILTRATE (08:50)
[2025-10-08 09:20] VITALS: BP 101/51; PULSE 98; RESP 16; O2SAT 96
[2025-10-08 09:50] VITALS: BP 118/69; PULSE 81; RESP 18; O2SAT 99
== END 2025-10-08 10:00 | disposition home or self-care (01) ==
PROVIDERS: PCP Physician Assistant Medical; Visit Provider Plastic Surgery
PROC: 01N54ZZ Release Median Nerve, Percutaneous Endoscopic Approach (ICD-10-PCS; CPT 29848; principal; 2025-10-08 08:45)
DX: G56.02 Carpal tunnel syndrome, left upper limb (principal); G56.22 Lesion of ulnar nerve, left upper limb; E78.5 Hyperlipidemia, unspecified; I10 Essential (primary) hypertension; E55.9 Vitamin D deficiency, unspecified; E11.9 Type 2 diabetes mellitus without complications; E66.01 Morbid (severe) obesity due to excess calories; Z68.41 Body mass index [BMI] 40.0-44.9, adult; Z79.84 Long term (current) use of oral hypoglycemic drugs; Z79.85 Long-term (current) use of injectable non-insulin antidiabetic drugs; Z79.891 Long term (current) use of opiate analgesic; Z98.890 Other specified postprocedural states; Z90.49 Acquired absence of other specified parts of digestive tract; Z87.891 Personal history of nicotine dependence; Z87.442 Personal history of urinary calculi; Z87.19 Personal history of other diseases of the digestive system
CPT/HCPCS: 64721; 29848; 82948; J0690; A9270; J1100; J2003; J2004; J2250; J2405; J2704; J3010; J7120